=== PATIENT | female | born 1945 | race Caucasian/White ===

== ENCOUNTER 2019-12-31 14:08 | Emergency (ER) | payer MEDICARE, SELFPAY ==
[2019-12-31 14:10] VITALS: BP 133/66; PULSE 93; RESP 18; TEMP 36.8; O2SAT 97; BMI 25.6
--- NOTE | 2019-12-31 14:19 | DI.RAD.S_ITS ---
PROCEDURE: XR HUMERUS LT 2V INDICATIONS: Fall TECHNIQUE: 2 views of the humerus were acquired. COMPARISON: None. FINDINGS: Bones: There is a proximal left humeral metaphyseal fracture with mild associated impaction and slight medial displacement of the distal fracture fragment. The fracture probably involves the greater tuberosity of the humeral head. There may be intra-articular extension. There is no dislocation or suspicious osseous lesion. Soft tissues: No suspicious soft tissue calcifications. IMPRESSION: Proximal left humerus fracture with probable involvement of the greater tuberosity and possible intra-articular extension. Dictated by: Rios Chaparro M.D. on 12/31/2019 at 13:58 Approved by: Rios Chaparro M.D. on 12/31/2019 at 14:01
[2019-12-31 15:20] VITALS: BP 103/78; PULSE 90; RESP 18; O2SAT 96
--- NOTE | 2019-12-31 15:26 | ED_ITS ---
HPI - Extremity Injury (Upper) General Chief Complaint: Extremity Injury, Upper Stated Complaint: left shoulder injury last night Time Seen by Provider: 12/31/19 15:26 Source: patient Mode of arrival: Wheelchair Limitations: no limitations History of Present Illness HPI narrative: This is a 74-year-old female who comes to the emergency department with a left shoulder pain. Patient fell yesterday. She states she was at home she tripped while walking alongside her couch and fell. She states she did bump her head but denies any anticoagulation denies any headache. She denies any vision changes. No nausea or vomiting. She has had some mild neck discomfort but nothing that she describes as serious according to the patient. She has full range of motion. She denies any numbness or tingling in her extremities. She denies any chest pain or shortness of breath. Patient states that pain is in the left upper shoulder and mid shaft. She was seen by the [facility] and was given a shot of Toradol which she found helpful. She does take medication for dyslipidemia, diabetes type 2, GERD and hypertension. She states she has had a hysterectomy and knee replacement. She denies any allergies other than morphine and Vicodin. Morphine makes her hallucinate Vicodin makes her break out in a rash. She has had Percocet in the past without issue. Related Data Previous Rx's Medication Instructions Recorded oxycodone-acetaminophen [Percocet] 1 tab PO QID PRN #20 tab 12/31/19 Allergies Allergy/AdvReac Type Severity Reaction Status Date / Time acetaminophen [From Vicodin] Allergy Severe Hives Verified 12/31/19 14:18 hydrocodone [From Vicodin] Allergy Severe Hives Verified 12/31/19 14:18 morphine Allergy Severe Hallucinati Verified 12/31/19 14:18 ng Review of Systems Review of Systems ROS Unobtainable: All systems reviewed & are unremarkable except as noted in HPI and below Patient History Medical History (Updated 12/31/19 @ 15:43 by Sarah Beth Tristan DO) Dyslipidemia (Acute) GERD (gastroesophageal reflux disease) (Acute) Non-insulin dependent diabetes mellitus (Acute) Surgical History (Updated 12/31/19 @ 15:39 by Sarah Beth Tristan DO) H/O: hysterectomy (Acute) History of knee replacement (Acute) Social History (Updated 12/31/19 @ 15:39 by Sarah Beth Tristan DO) details: Lives alone independently on [facility] Smoking Status: Never smoker Smoking Status: Never smoker alcohol intake frequency: holidays/special occasions only Substance Use Type: does not use Exam Narrative Exam Narrative: GEN: Patient appears in mild distress. HEAD: No evidence of trauma, no raccoon/Do sign. NECK: Nontender, painless range of motion, trachea midline Negative Nexus criteria, there is no mid line tenderness, distracting injury, altered mental status, neuro deficit, recent EtOH. EYES: PERRLA, EOMI ENT: External inspection normal, trachea is midline, TM's are normal no hemotypanum, Nares are clear, no septal hematoma, no dental or oral injury, airway is normal and with normal occlusion, No bony tenderness RESP: Chest is nontender and has symmetric movement, no ecchymosis, breath sounds are normal no crackles, wheezes or rales CVS: Heart sounds are normal, no murmur noted, No JVD. ABG/GI: Nontender, soft, normal bowel sounds, no distention, no organomegaly, pelvic rock is negative NEURO: Oriented AOx3, neuro is grossly intact, sensation and motor is normal all 4 extremities moving, cranial nerves II through XII are intact, GCS is 15 PSYCH: Normal mood and affect SKIN: Intact, warm and dry, no crepitus and without decubitus BACK: No CVA tenderness, no vertebral tenderness, no step-off's, no crepitus EXT: Patient has tenderness of the left upper shoulder proximal humeral area. There is some swelling and mild ecchymosis, no obvious deformity but difficult to assess secondary to patient's body habitus, patient has full sensation in all 5 fingers and throughout the arm, she has full range of motion, she is nontender in the lower arm including elbow, forearm wrist and fingers, she has floor scrubber full equal bilaterally and 2+ radial pulse, hips are nontender, no pedal edema, normal color and temperature, normal range of motion of extremities with normal tendon exam, 2+ pulses in all four extremities Initial Vital Signs Initial Vital Signs: Vital Signs Temperature 98.3 F 12/31/19 14:10 Pulse Rate 93 H 12/31/19 14:10 Respiratory Rate 18 12/31/19 14:10 Blood Pressure 133/66 12/31/19 14:10 Pulse Oximetry 97 12/31/19 14:10 Course Orders Ordered: ED Orders 12/31/19 14:19 XR humerus LT 2V Stat Discontinued Medications Oxycodone/Acetaminophen (Percocet 5/325) 2 tab PO NOW ONE Stop: 12/31/19 15:34 Last Admin: 12/31/19 15:59 Dose: 2 tab Documented by: ADDISON Vital Signs Vital signs: Vital Signs - 8 hr 12/31/19 14:10 12/31/19 15:20 12/31/19 16:13 Temperature 98.3 F Pulse Rate 93 H 90 89 Pulse Rate [Left Radial] 90 Respiratory Rate 18 18 14 Blood Pressure 133/66 Blood Pressure [Left Arm] 103/78 157/66 H Pulse Oximetry 97 96 95 MDM - Extremity Injury (Upper) Imaging Data Humeral x-ray: Radiologist's Impression: [address] [address] XRay Report Signed Patient: Lucie Barba LMR#: [id number] : 1945cct:[id number] Age/Sex: 74 / FDate of Service: 12/31/19 Loc: ED Accession Number: [id number] Procedure: XR humerus LT 2V Ordering Provider: Sarah Beth Tristan D.O. PROCEDURE: XR HUMERUS LT 2V INDICATIONS: Fall TECHNIQUE: 2 views of the humerus were acquired. COMPARISON: None. FINDINGS: Bones: There is a proximal left humeral metaphyseal fracture with mild associated impaction and slight medial displacement of the distal fracture fragment. The fracture probably involves the greater tuberosity of the humeral head. There may be intra-articular extension. There is no dislocation or suspicious osseous lesion. Soft tissues: No suspicious soft tissue calcifications. IMPRESSION: Proximal left humerus fracture with probable involvement of the greater tuberosity and possible intra-articular extension. Dictated by: Rios Chaparro M.D. on 12/31/2019 at 13:58 Approved by: Rios Chaparro M.D. on 12/31/2019 at 14:01 [facility] Narrative Medical decision making narrative: Patient arrives already in a sling which she received from the clinic on or cast. She still has some pain gave her dose of Percocet here in the department. Discussed findings with Dr. Giron, he has reviewed images, who recommends sling and follow-up outpatient. Non operative treatment at this time. Discussed with patient findings, plan with Orthopedic surgery and return precautions. Discharge Plan Departure Patient Disposition: Home Clinical Impression: Fracture of proximal end of humerus Qualifiers: Encounter type: initial encounter Fracture type: closed Fracture alignment: displaced Laterality: left Discharge Date/Time: 12/31/19 16:16 Instructions: DI for Humeral Fracture Activity Restrictions/Additional Instructions: Follow-up with Orthopedic surgery in the next 5-7 days, call for an appointment either this afternoon or Friday morning. Take pain medication as prescribed, this medication can make you sleepy do not drive, perform hazardous activities or make any major decisions while taking it. This medication can and will cause constipation take a stool softener such as Colace or MiraLax once or twice daily until stools are soft while taking narcotics. Splint Care: Keep sling clean and dry. Elevated affected body part to decrease swelling. OK to use ice pack on the affected body part. Use for 15-20 minutes each time, for 5-6x per day. If you develop worsening pain, numbness, tingling, discoloration of the affected body part, loosen the sling by loosening the ESTELLE wrap, and either see your doctor for an urgent re-assessment, or return to the Emergency Department. Return to the Emergency Department for any new or worsening symptoms. Prescriptions: New oxycodone-acetaminophen [Percocet] 5-325 mg tablet 1 tab PO QID PRN (Reason: pain) Qty: 20 RF: 0 Referrals: Erik Giron MD [Physician] - Arslan Felton MD [Primary Care Provider] -
[2019-12-31] MEDS: OXYCODONE/ACETAMINOPHEN 5/325 TABLET 2 TAB PO (15:59)
[2019-12-31 16:13] VITALS: BP 157/66; PULSE 89; RESP 14; O2SAT 95
== END 2019-12-31 16:16 | disposition home or self-care (01) ==
PROVIDERS: Emergency Provider Emergency Medicine; PCP Family Medicine
DX: S42.202A Unspecified fracture of upper end of left humerus, initial encounter for closed fracture (principal); W01.0XXA Fall on same level from slipping, tripping and stumbling without subsequent striking against object, initial encounter
CPT/HCPCS: 73060; 99283

== ENCOUNTER → 2020-01-11 08:57 | Outpatient (CLI) | payer MEDICARE, SELFPAY ==
--- NOTE | 2020-01-11 | DI.CT.S_ITS ---
PROCEDURE: CT UE LT WO CON INDICATIONS: Other nondisplaced fracture of upper end of left humerus TECHNIQUE: Noncontrast 1-1.5 mm thick sections acquired from the acromioclavicular joint to the inferior scapula, with coronal and sagittal reformatting. COMPARISON: [facility], CR, XR HUMERUS LT 2V, 12/31/2019, 14:13. [facility] [place], CR, XR SHOULDER 2+ VIEWS LEFT, 01/07/2020, 14:58. FINDINGS: Image quality: Excellent. Bones: There is a comminuted humeral head and neck fracture with impaction. There is involvement of the greater tuberosity with mild displacement. Suspect a small avulsion fracture of the posterior superior glenoid. Soft tissues: Small glenohumeral joint effusion. IMPRESSION: 1. A comminuted humeral head and neck fracture with involvement of the greater tuberosity. 2. Suspect a small avulsion fracture of the posterior superior glenoid. 3. Small glenohumeral joint effusion. 1. Dictated by: Brayan Alanis M.D. on 01/11/2020 at 8:48 Approved by: Brayan Alanis M.D. on 01/11/2020 at 9:06
== END ==
PROVIDERS: PCP Family Medicine; Referring Provider Orthopaedic Surgery; Visit Provider Orthopaedic Surgery
DX: S42.292A Other displaced fracture of upper end of left humerus, initial encounter for closed fracture (principal); S42.252A Displaced fracture of greater tuberosity of left humerus, initial encounter for closed fracture; M25.412 Effusion, left shoulder; X58.XXXA Exposure to other specified factors, initial encounter
CPT/HCPCS: 73200

== ENCOUNTER 2024-10-13 19:34 | Observation (INO) | payer MEDICARE, SELFPAY ==
[2024-10-13 20:02] VITALS: BP 133/62; PULSE 95; RESP 14; TEMP 36.4; O2SAT 94; BMI 56.2
--- NOTE | 2024-10-13 20:42 | DI.CT.S_ITS ---
PROCEDURE: CT HEAD/BRAIN WO CON INDICATIONS: hullucinations visual TECHNIQUE: Noncontrast 4.5 mm thick angled axial sections acquired from the foramen magnum to the vertex, with coronal and sagittal reformats. For radiation dose reduction, the following was used: automated exposure control, adjustment of mA and/or kV according to patient size. COMPARISON: None. FINDINGS: Image quality: Diagnostic. CSF spaces: Basal cisterns are patent. No extra-axial fluid collections. The ventricles are symmetric in size and shape. Brain: No intracranial bleeds or masses. There is cerebral volume loss for age, with resultant ventricular and sulcal prominence. There are periventricular and deep white matter chronic small vessel ischemic changes. There is intracranial internal carotid artery atherosclerosis. Skull and face: Calvarium and visualized facial bones appear intact, without suspicious lesions. Sinuses: Visualized sinuses and mastoids are clear. IMPRESSION: No acute intracranial pathology. Dictated by: Dane Mock M.D. on 10/13/2024 at 21:10 Approved by: Dane Mock M.D. on 10/13/2024 at 21:12
--- NOTE | 2024-10-13 21:27 | DI.RAD.S_ITS ---
PROCEDURE: XR WRIST LT MIN 3V INDICATIONS: Fall with pain TECHNIQUE: 3 views of the wrist were acquired. COMPARISON: None. FINDINGS: Bones: Comminuted and mildly displaced fracture of the distal radius. Displaced fracture of the ulnar styloid tip.. No suspicious bony lesions. Soft tissues: No suspicious soft tissue calcifications. IMPRESSION: Distal radial and ulnar styloid fractures. Dictated by: Dane Mock M.D. on 10/13/2024 at 22:31 Approved by: Dane Mock M.D. on 10/13/2024 at 22:32
[2024-10-13 21:44] LABS: Add Manual Diff / Slide Review NO; Basophils Absolute Auto 100 /uL (0-100); Basophils Percent Auto 1.4 % (0-2); Eosinophils Absolute Auto 200 /uL (0-450); Hematocrit 40.7 % (36-46); Hemoglobin 13.7 g/dL (12.0-16.0); Lymphocytes Absolute Auto 1900 /uL (1100-4500); Lymphocytes Percent Auto 24.5 % (25-40); Mean Corpuscular HGB Conc 33.6 % (30-36); Mean Corpuscular Hemoglobin 29.9 PG (26-34); Mean Corpuscular Volume 88.9 fL (80-100); Monocytes Absolute Auto 600 /uL (0-900); Monocytes Percent Auto 8.1 % (3-14); Neutrophils Absolute Auto 4900 /uL (1500-7000); Platelet Count 176 X10^3/uL (150-400); Red Blood Cell Count 4.57 X10^6/uL (4.0-5.2); Red Cell Distribution Width 12.8 % (11.6-14.8); White Blood Cell Count 7.7 X10^3/uL (4.5-11.0)
[2024-10-13 21:53] LABS: Alanine Aminotransferase 33 IU/L (<35); Albumin 4.6 g/dL (3.5-5.0); Albumin Globulin Ratio 1.4 (1.0-2.8); Alkaline Phosphatase 111 U/L (38-126); Aspartate Aminotransferase 35 IU/L (14-36); BUN Creatinine Ratio 26.9 (6-22); Bilirubin Total 0.5 mg/dL (0.2-1.3); Blood Urea Nitrogen 21 mg/dL (7-17); Calcium 9.5 mg/dL (8.4-10.2); Carbon Dioxide 25 mmol/L (22-32); Chloride 101 mmol/L (98-107); Estimated Glomerular Filt Rate > 60 mL/min (>60); Globulin 3.3 g/dL (1.7-4.1); Glucose 221 mg/dL (80-110); Potassium 3.5 mmol/L (3.4-5.1); Sodium 138 mmol/L (137-145); Total Protein 7.9 g/dL (6.3-8.2)
--- NOTE | 2024-10-13 22:07 | PC.NURSE ---
Addendum entered by Colin Price R.N. 10/13/24 23:04: Son is Levi Anderson (#[phone]) who lives in [place]. Original Note: Pt lives in basement of friend, Altagracia Hernandez (#[phone]) on [facility]. She was encouraged to come in by APS Angie Forrest (#[phone]) due to ongoing hallucinations and concerns for safety at the home in regard to leaving the stove top on and burned food. Pt reports a fall at the end of July coming out of the bathtub and on September 19 when she hurt her wrist. Both times she was not seen. She has a splint on her left wrist and c/o 2/10 pain with movement. She began having visual hallucinations in August and some agitation during these hallucinations. She is currently A&Ox4 and not experiencing any hallucinations. Pt states she sees and alive people that don't have their voice. She is able to understand them thought and reads their lips. Pt reports seeing her ex- and girls having sex in front of her. She also sees people crawling into her bed. Before being triaged she saw people in the waiting room that weren't there according to her friend Altagracia. Friend Altagracia says she will set the table for multiple people and cook for them who are not there. Friend Altagracia states APS initially became involved due to concerns for bank fraud. She has recently started Quetiapine 50mg once daily which has helped me sleep. Pt has referrals to neuro-psych and for an MRI next week. She has seen Noemí and Be Cabello at [facility] (#[phone]) on [place]. Current home meds are Celecoxib 100mg BID, cyclobenzaprine hcl 10mg PRN, levothyroxine 50mcg once daily, quetiapine fumarate 50mg once daily, and atorvastatin calcium 20mg once daily.
[2024-10-13 22:30] LABS: TSH w/ Reflex to FT4 0.91 uIU/mL (0.47-4.68)
[2024-10-13 22:43] LABS: Ethanol (ETOH) < 10 mg/dL; HEMOLYSIS 26 (0-50)
--- NOTE | 2024-10-13 22:45 | EKG_ITS ---
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
[2024-10-13 22:49] VITALS: PULSE 82; O2SAT 97
[2024-10-13 22:50] VITALS: BP 121/71; PULSE 82; O2SAT 97
[2024-10-13 23:00] VITALS: PULSE 81; O2SAT 95
[2024-10-13 23:01] VITALS: BP 110/59; PULSE 81; O2SAT 95
--- NOTE | 2024-10-13 23:08 | ED.PSYCH ---
HPI - Psych <Tiffanie Meehan MD - Last Filed: 10/21/24 07:14> General Chief Complaint: Psychiatric Symptoms Stated Complaint: mental health eval Time Seen by Provider: 10/13/24 19:44 Source: patient and family Mode of arrival: Ambulatory History of Present Illness HPI Narrative: 79-year-old woman who lives on [facility] the history of diabetes, reflux and hyperlipidemiabrought in voluntarily with a friend with complaints of visual and auditory hallucinations. She had a fall on August 15 where she hit her head and was not evaluated after that. On September 22, she had a fall as she was running from people that were chasing her,. She landed on her left arm during the fall and has been having left arm pain. She reports that the people that continue to follow her are getting increasingly angry, there yelling at her, otherwise harassing her and telling her she is a bad person. she notes that she has been seeing her who apparently has been for almost 5 years, coming back to talk to her daily for the last 2 months. She can not express what they talk about but she is quite upset with him and it sounds like he is upset with her. She states that she knows that he is but she does not know what to do when she continues to see him daily.Patient was seen by Dr. Felton on [facility] and apparently is scheduled for brain on [facility]. She denies suicidal or homicidal ideation. She states she is drinking and eating appropriately. no reports of recreational drug use including alcohol, narcotics or marijuana. there was no report of starting any new medications. Adult protective Services has also asked for further medical and psychiatric evaluation. Related Data Home Medications Medication Instructions Recorded Confirmed atorvastatin 20 mg tablet 20 mg PO DAILY 10/15/24 10/15/24 celecoxib 100 mg capsule 100 mg PO DAILY 10/15/24 10/15/24 cyclobenzaprine 10 mg tablet 10 mg PO 3XD 10/15/24 10/15/24 levothyroxine 50 mcg tablet 50 mcg PO DAILY 10/15/24 10/15/24 quetiapine 50 mg tablet 50 mg PO DAILY 10/15/24 10/15/24 Allergies Allergy/AdvReac Type Severity Reaction Status Date / Time hydrocodone [From Vicodin] Allergy Severe Hives Verified 10/13/24 22:22 morphine Allergy Severe Hallucinati Verified 10/13/24 22:22 ng Review of Systems <Tiffanie Meehan MD - Last Filed: 10/21/24 07:14> Review of Systems Narrative: Pertinent positive and negative findings as per HPI Patient History <Tiffanie Meehan MD - Last Filed: 10/21/24 07:14> Medical History GERD (gastroesophageal reflux disease) Non-insulin dependent diabetes mellitus Dyslipidemia Surgical History History of knee replacement H/O: hysterectomy Social History details: Lives alone independently on [facility] household members: none Smoking Status: Never smoker alcohol intake: current Smoking Status: Never smoker alcohol intake frequency: holidays/special occasions only Exam <Tiffanie Meehan MD - Last Filed: 10/21/24 07:14> Initial Vital Signs Initial Vital Signs: Vital Signs Temperature 97.5 F L 10/13/24 20:02 Pulse Rate 95 H 10/13/24 20:02 Respiratory Rate 14 10/13/24 20:02 Blood Pressure 133/62 10/13/24 20:02 Pulse Oximetry 94 10/13/24 20:02 Oxygen Delivery Method Room Air 10/13/24 20:02 General: Healthy appearing, tearful but cooperative. HEENT: Moist mucous membranes, normal sclera with reactive pupils, Respiratory: Lungs are clear to auscultation, no wheezing no rales no rhonchi. Full and symmetrical air movement Cardiac: Regular rate and rhythm no murmurs no bruits Abdomen: Soft, nontender, Skin: Warm and dry, no rashes Neurologic: Grossly neurologically intact with no obvious asymmetries or abnormalities Extremities: Left upper extremity now in a sugar-tong splint, tender of the wrist, neurovascularly intact Psych: Cooperative, tearful, quite tangential as best I can tell she is clearly seeing and talking to people that she understands are already but are still quite present. Seems like this has been going on for at least 2 months if not longer. <Arslan Clifford MD - Last Filed: 10/18/24 07:27> Initial Vital Signs Initial Vital Signs: Vital Signs Temperature 97.5 F L 10/13/24 20:02 Pulse Rate 95 H 10/13/24 20:02 Respiratory Rate 14 10/13/24 20:02 Blood Pressure 133/62 10/13/24 20:02 Pulse Oximetry 94 10/13/24 20:02 Oxygen Delivery Method Room Air 10/13/24 20:02 <Mitul Prieto MD - Last Filed: 10/16/24 04:54> Initial Vital Signs Initial Vital Signs: Vital Signs Temperature 97.5 F L 10/13/24 20:02 Pulse Rate 95 H 10/13/24 20:02 Respiratory Rate 14 10/13/24 20:02 Blood Pressure 133/62 10/13/24 20:02 Pulse Oximetry 94 10/13/24 20:02 Oxygen Delivery Method Room Air 10/13/24 20:02 Course <Tiffanie Meehan MD - Last Filed: 10/21/24 07:14> Orders Ordered: Acetaminophen (Acetaminophen 325 Mg Tablet) 650 mg PO Q6H PRN PRN Reason: Pain, Mild (1-3) Atorvastatin Calcium (Atorvastatin 20 Mg Tablet) 20 mg PO DAILY [facility] Last Admin: 10/20/24 08:56 Dose: 20 mg Documented By: Admin: 10/19/24 08:16 Dose: 20 mg Documented By: Admin: 10/18/24 08:05 Dose: 20 mg Documented By: Admin: 10/17/24 08:49 Dose: 20 mg Documented By: Admin: 10/16/24 09:14 Dose: 20 mg Documented By: BT Celecoxib (Celecoxib 100 Mg Capsule) 100 mg PO DAILY [facility] Last Admin: 10/20/24 08:56 Dose: 100 mg Documented By: Admin: 10/19/24 08:16 Dose: 100 mg Documented By: Admin: 10/18/24 08:05 Dose: 100 mg Documented By: Admin: 10/17/24 08:49 Dose: 100 mg Documented By: Admin: 10/16/24 09:14 Dose: 100 mg Documented By: BT Cyclobenzaprine HCl (Cyclobenzaprine 10 Mg Tablet) 10 mg PO TID PRN PRN Reason: muscle spasms Last Admin: 10/19/24 20:10 Dose: 10 mg Documented By: Admin: 10/19/24 13:16 Dose: 10 mg Documented By: Admin: 10/19/24 08:16 Dose: 10 mg Documented By: Admin: 10/18/24 08:05 Dose: 10 mg Documented By: Admin: 10/17/24 22:37 Dose: 10 mg Documented By: Admin: 10/17/24 14:39 Dose: 10 mg Documented By: Admin: 10/17/24 08:49 Dose: 10 mg Documented By: SB Haloperidol (Haloperidol 5 Mg/Ml Vial) 5 mg IM Q2HR PRN PRN Reason: Agitation Last Admin: 10/20/24 19:59 Dose: 5 mg Documented By: Admin: 10/20/24 17:36 Dose: 5 mg Documented By: Admin: 10/19/24 19:36 Dose: 5 mg Documented By: Admin: 10/19/24 12:19 Dose: 5 mg Documented By: CAROLYNE Heparin Sodium (Porcine) (Heparin 5,000 Unit/Ml Vial) 5,000 unit SUBCUT BID [facility] Last Admin: 10/20/24 20:00 Dose: 5,000 unit Documented By: Admin: 10/20/24 08:56 Dose: 5,000 unit Documented By: Admin: 10/19/24 20:11 Dose: 5,000 unit Documented By: Admin: 10/19/24 08:16 Dose: 5,000 unit Documented By: Admin: 10/18/24 20:01 Dose: 5,000 unit Documented By: Admin: 10/18/24 08:06 Dose: 5,000 unit Documented By: Admin: 10/17/24 20:05 Dose: Not Given Documented By: Admin: 10/17/24 08:49 Dose: 5,000 unit Documented By: Admin: 10/16/24 19:35 Dose: 5,000 unit Documented By: Admin: 10/16/24 09:14 Dose: 5,000 unit Documented By: Admin: 10/15/24 21:45 Dose: 5,000 unit Documented By: (2) Hydroxyzine HCl (Hydroxyzine 50 Mg/Ml Inj) 25 mg IM Q4HR PRN PRN Reason: Nausea Last Admin: 10/19/24 13:39 Dose: 25 mg Documented By: CAROLYNE Levothyroxine Sodium (Levothyroxine 50 Mcg Tablet) 50 mcg PO DAILY@0600 [facility] Last Admin: 10/21/24 05:51 Dose: 50 mcg Documented By: Admin: 10/20/24 05:53 Dose: 50 mcg Documented By: Admin: 10/19/24 07:36 Dose: 50 mcg Documented By: Admin: 10/18/24 08:05 Dose: 50 mcg Documented By: Admin: 10/17/24 05:09 Dose: Not Given Documented By: Admin: 10/16/24 05:32 Dose: Not Given Documented By: MS(2) Admin: 10/15/24 08:38 Dose: 50 mcg Documented By: DARI Melatonin (Melatonin 3 Mg Tablet) 3 mg PO BEDTIME [facility] Last Admin: 10/20/24 20:00 Dose: 3 mg Documented By: Admin: 10/19/24 20:10 Dose: 3 mg Documented By: Admin: 10/18/24 20:01 Dose: 3 mg Documented By: Admin: 10/17/24 20:04 Dose: 3 mg Documented By: Admin: 10/16/24 19:34 Dose: 3 mg Documented By: Admin: 10/15/24 22:33 Dose: 3 mg Documented By: MS(2) Admin: 10/14/24 22:24 Dose: 3 mg Documented By: JEFFREY Naloxone HCl (Naloxone 0.4 Mg/Ml Vial) 0.2 mg IV Q2MIN PRN PRN Reason: Opiate Reversal Stored In Pharmacy 1 each PO PRN PRN PRN Reason: PROTOCOL Olanzapine (Olanzapine 2.5 Mg Tablet) 10 mg PO BID [facility] Last Admin: 10/20/24 20:03 Dose: 10 mg Documented By: Admin: 10/20/24 08:56 Dose: 10 mg Documented By: Admin: 10/19/24 20:10 Dose: 10 mg Documented By: CLIFTON Ondansetron HCl (Ondansetron 4 Mg/2 Ml Inj) 4 mg IV Q8HR PRN PRN Reason: Nausea And Vomiting Quetiapine Fumarate (Quetiapine 25 Mg Tablet) 100 mg PO BEDTIME [facility] Last Admin: 10/20/24 20:00 Dose: 100 mg Documented By: Admin: 10/19/24 20:11 Dose: 100 mg Documented By: CLIFTON Discontinued Medications Alprazolam (Alprazolam 0.25 Mg Tablet) 0.25 mg PO NOW ONE Stop: 10/18/24 23:39 Last Admin: 10/19/24 01:27 Dose: Not Given Documented By: MS Celecoxib (Celecoxib 100 Mg Capsule) 100 mg PO BID [facility] Last Admin: 10/15/24 22:34 Dose: 100 mg Documented By: MS(2) Admin: 10/15/24 08:39 Dose: 100 mg Documented By: Admin: 10/14/24 22:24 Dose: 100 mg Documented By: JEFFREY Enoxaparin Sodium (Enoxaparin 40 Mg/0.4 Ml Syringe) 40 mg SUBCUT DAILY [facility] Last Admin: 10/15/24 08:39 Dose: 40 mg Documented By: SPF Haloperidol (Haloperidol 5 Mg/Ml Vial) 5 mg IM NOW ONE Stop: 10/18/24 22:09 Last Admin: 10/18/24 23:06 Dose: 5 mg Documented By: MS Haloperidol (Haloperidol 5 Mg/Ml Vial) 5 mg IM NOW ONE Stop: 10/19/24 02:56 Last Admin: 10/19/24 05:53 Dose: 5 mg Documented By: MS Haloperidol (Haloperidol 5 Mg/Ml Vial) 5 mg IM NOW ONE Stop: 10/19/24 14:04 Last Admin: 10/19/24 14:09 Dose: 5 mg Documented By: CAROLYNE Levothyroxine Sodium (Levothyroxine 50 Mcg Tablet) 50 mcg PO DAILY [facility] Lorazepam (Lorazepam 2 Mg/Ml Inj) 1 mg IV NOW ONE Stop: 10/14/24 07:52 Last Admin: 10/14/24 07:58 Dose: 1 mg Documented By: MLM Lorazepam (Lorazepam 0.5 Mg Tablet) 0.5 mg PO NOW ONE Stop: 10/15/24 18:37 Last Admin: 10/15/24 18:41 Dose: 0.5 mg Documented By: RB Olanzapine (Olanzapine 2.5 Mg Tablet) 5 mg PO BID [facility] Last Admin: 10/17/24 08:49 Dose: 5 mg Documented By: Admin: 10/16/24 19:34 Dose: 5 mg Documented By: Admin: 10/16/24 09:14 Dose: 5 mg Documented By: Admin: 10/15/24 22:33 Dose: 5 mg Documented By: MS(2) Admin: 10/15/24 08:38 Dose: 5 mg Documented By: Admin: 10/14/24 22:24 Dose: 5 mg Documented By: JEFFREY Olanzapine (Olanzapine 10 Mg Vial) 10 mg IM NOW ONE Stop: 10/16/24 22:51 Last Admin: 10/17/24 00:02 Dose: 10 mg Documented By: MARIELLE Olanzapine (Olanzapine 2.5 Mg Tablet) 5 mg PO DAILY [facility] Last Admin: 10/19/24 08:16 Dose: 5 mg Documented By: Admin: 10/18/24 08:05 Dose: 5 mg Documented By: DIXON Olanzapine (Olanzapine 2.5 Mg Tablet) 10 mg PO BEDTIME [facility] Last Admin: 10/18/24 20:01 Dose: 10 mg Documented By: Admin: 10/17/24 20:05 Dose: 10 mg Documented By: Olanzapine (Olanzapine 2.5 Mg Tablet) 5 mg PO NOW ONE Stop: 10/17/24 17:06 Last Admin: 10/17/24 17:44 Dose: 5 mg Documented By: DIXON Olanzapine (Olanzapine 2.5 Mg Tablet) 5 mg PO NOW ONE Stop: 10/19/24 13:35 Last Admin: 10/19/24 13:38 Dose: 5 mg Documented By: CAROLYNE Quetiapine Fumarate (Quetiapine 25 Mg Tablet) 25 mg PO NOW ONE Stop: 10/14/24 03:33 Last Admin: 10/14/24 03:45 Dose: 25 mg Documented By: LINDSAY Quetiapine Fumarate (Quetiapine 25 Mg Tablet) 50 mg PO NOW ONE Stop: 10/14/24 04:24 Last Admin: 10/14/24 04:33 Dose: 50 mg Documented By: Quetiapine Fumarate (Quetiapine 25 Mg Tablet) 50 mg PO BEDTIME [facility] Last Admin: 10/15/24 22:33 Dose: 50 mg Documented By: (2) Admin: 10/14/24 22:24 Dose: 50 mg Documented By: JEFFREY Quetiapine Fumarate (Quetiapine 25 Mg Tablet) 50 mg PO DAILY [facility] Quetiapine Fumarate (Quetiapine 25 Mg Tablet) 50 mg PO BEDTIME [facility] Last Admin: 10/18/24 20:01 Dose: 50 mg Documented By: Admin: 10/17/24 20:04 Dose: 50 mg Documented By: Admin: 10/16/24 20:03 Dose: 50 mg Documented By: VISH Quetiapine Fumarate (Quetiapine 25 Mg Tablet) 100 mg PO NOW ONE Stop: 10/16/24 21:11 Last Admin: 10/16/24 21:34 Dose: 100 mg Documented By: CM Vital Signs Vital signs: Vital Signs - 8 hr 10/15/24 18:14 10/15/24 18:14 Temperature 97.5 F L Pulse Rate 89 Respiratory Rate 20 Blood Pressure 133/64 Pulse Oximetry 94 <Arslan Clifford MD - Last Filed: 10/18/24 07:27> Orders Ordered: Acetaminophen (Acetaminophen 325 Mg Tablet) 650 mg PO Q6H PRN PRN Reason: Pain, Mild (1-3) Atorvastatin Calcium (Atorvastatin 20 Mg Tablet) 20 mg PO DAILY [facility] Last Admin: 10/20/24 08:56 Dose: 20 mg Documented By: Admin: 10/19/24 08:16 Dose: 20 mg Documented By: Admin: 10/18/24 08:05 Dose: 20 mg Documented By: Admin: 10/17/24 08:49 Dose: 20 mg Documented By: Admin: 10/16/24 09:14 Dose: 20 mg Documented By: BT Celecoxib (Celecoxib 100 Mg Capsule) 100 mg PO DAILY [facility] Last Admin: 10/20/24 08:56 Dose: 100 mg Documented By: Admin: 10/19/24 08:16 Dose: 100 mg Documented By: Admin: 10/18/24 08:05 Dose: 100 mg Documented By: Admin: 10/17/24 08:49 Dose: 100 mg Documented By: Admin: 10/16/24 09:14 Dose: 100 mg Documented By: BT Cyclobenzaprine HCl (Cyclobenzaprine 10 Mg Tablet) 10 mg PO TID PRN PRN Reason: muscle spasms Last Admin: 10/19/24 20:10 Dose: 10 mg Documented By: Admin: 10/19/24 13:16 Dose: 10 mg Documented By: Admin: 10/19/24 08:16 Dose: 10 mg Documented By: Admin: 10/18/24 08:05 Dose: 10 mg Documented By: Admin: 10/17/24 22:37 Dose: 10 mg Documented By: Admin: 10/17/24 14:39 Dose: 10 mg Documented By: Admin: 10/17/24 08:49 Dose: 10 mg Documented By: SB Haloperidol (Haloperidol 5 Mg/Ml Vial) 5 mg IM Q2HR PRN PRN Reason: Agitation Last Admin: 10/20/24 19:59 Dose: 5 mg Documented By: Admin: 10/20/24 17:36 Dose: 5 mg Documented By: Admin: 10/19/24 19:36 Dose: 5 mg Documented By: Admin: 10/19/24 12:19 Dose: 5 mg Documented By: CAROLYNE Heparin Sodium (Porcine) (Heparin 5,000 Unit/Ml Vial) 5,000 unit SUBCUT BID [facility] Last Admin: 10/20/24 20:00 Dose: 5,000 unit Documented By: Admin: 10/20/24 08:56 Dose: 5,000 unit Documented By: Admin: 10/19/24 20:11 Dose: 5,000 unit Documented By: Admin: 10/19/24 08:16 Dose: 5,000 unit Documented By: Admin: 10/18/24 20:01 Dose: 5,000 unit Documented By: Admin: 10/18/24 08:06 Dose: 5,000 unit Documented By: Admin: 10/17/24 20:05 Dose: Not Given Documented By: Admin: 10/17/24 08:49 Dose: 5,000 unit Documented By: Admin: 10/16/24 19:35 Dose: 5,000 unit Documented By: Admin: 10/16/24 09:14 Dose: 5,000 unit Documented By: Admin: 10/15/24 21:45 Dose: 5,000 unit Documented By: MS(2) Hydroxyzine HCl (Hydroxyzine 50 Mg/Ml Inj) 25 mg IM Q4HR PRN PRN Reason: Nausea Last Admin: 10/19/24 13:39 Dose: 25 mg Documented By: CAROLYNE Levothyroxine Sodium (Levothyroxine 50 Mcg Tablet) 50 mcg PO DAILY@0600 [facility] Last Admin: 10/21/24 05:51 Dose: 50 mcg Documented By: Admin: 10/20/24 05:53 Dose: 50 mcg Documented By: Admin: 10/19/24 07:36 Dose: 50 mcg Documented By: Admin: 10/18/24 08:05 Dose: 50 mcg Documented By: Admin: 10/17/24 05:09 Dose: Not Given Documented By: Admin: 10/16/24 05:32 Dose: Not Given Documented By: MS(2) Admin: 10/15/24 08:38 Dose: 50 mcg Documented By: SPF Melatonin (Melatonin 3 Mg Tablet) 3 mg PO BEDTIME [facility] Last Admin: 10/20/24 20:00 Dose: 3 mg Documented By: Admin: 10/19/24 20:10 Dose: 3 mg Documented By: Admin: 10/18/24 20:01 Dose: 3 mg Documented By: Admin: 10/17/24 20:04 Dose: 3 mg Documented By: Admin: 10/16/24 19:34 Dose: 3 mg Documented By: Admin: 10/15/24 22:33 Dose: 3 mg Documented By: MS(2) Admin: 10/14/24 22:24 Dose: 3 mg Documented By: JEFFREY Naloxone HCl (Naloxone 0.4 Mg/Ml Vial) 0.2 mg IV Q2MIN PRN PRN Reason: Opiate Reversal Stored In Pharmacy 1 each PO PRN PRN PRN Reason: PROTOCOL Olanzapine (Olanzapine 2.5 Mg Tablet) 10 mg PO BID [facility] Last Admin: 10/20/24 20:03 Dose: 10 mg Documented By: Admin: 10/20/24 08:56 Dose: 10 mg Documented By: Admin: 10/19/24 20:10 Dose: 10 mg Documented By: CLIFTON Ondansetron HCl (Ondansetron 4 Mg/2 Ml Inj) 4 mg IV Q8HR PRN PRN Reason: Nausea And Vomiting Quetiapine Fumarate (Quetiapine 25 Mg Tablet) 100 mg PO BEDTIME [facility] Last Admin: 10/20/24 20:00 Dose: 100 mg Documented By: Admin: 10/19/24 20:11 Dose: 100 mg Documented By: CLIFTON Discontinued Medications Alprazolam (Alprazolam 0.25 Mg Tablet) 0.25 mg PO NOW ONE Stop: 10/18/24 23:39 Last Admin: 10/19/24 01:27 Dose: Not Given Documented By: Celecoxib (Celecoxib 100 Mg Capsule) 100 mg PO BID [facility] Last Admin: 10/15/24 22:34 Dose: 100 mg Documented By: MS(2) Admin: 10/15/24 08:39 Dose: 100 mg Documented By: Admin: 10/14/24 22:24 Dose: 100 mg Documented By: JEFFREY Enoxaparin Sodium (Enoxaparin 40 Mg/0.4 Ml Syringe) 40 mg SUBCUT DAILY [facility] Last Admin: 10/15/24 08:39 Dose: 40 mg Documented By: SPF Haloperidol (Haloperidol 5 Mg/Ml Vial) 5 mg IM NOW ONE Stop: 10/18/24 22:09 Last Admin: 10/18/24 23:06 Dose: 5 mg Documented By: MS Haloperidol (Haloperidol 5 Mg/Ml Vial) 5 mg IM NOW ONE Stop: 10/19/24 02:56 Last Admin: 10/19/24 05:53 Dose: 5 mg Documented By: MS Haloperidol (Haloperidol 5 Mg/Ml Vial) 5 mg IM NOW ONE Stop: 10/19/24 14:04 Last Admin: 10/19/24 14:09 Dose: 5 mg Documented By: CAROLYNE Levothyroxine Sodium (Levothyroxine 50 Mcg Tablet) 50 mcg PO DAILY [facility] Lorazepam (Lorazepam 2 Mg/Ml Inj) 1 mg IV NOW ONE Stop: 10/14/24 07:52 Last Admin: 10/14/24 07:58 Dose: 1 mg Documented By: MARTA Lorazepam (Lorazepam 0.5 Mg Tablet) 0.5 mg PO NOW ONE Stop: 10/15/24 18:37 Last Admin: 10/15/24 18:41 Dose: 0.5 mg Documented By: RB Olanzapine (Olanzapine 2.5 Mg Tablet) 5 mg PO BID [facility] Last Admin: 10/17/24 08:49 Dose: 5 mg Documented By: Admin: 10/16/24 19:34 Dose: 5 mg Documented By: Admin: 10/16/24 09:14 Dose: 5 mg Documented By: Admin: 10/15/24 22:33 Dose: 5 mg Documented By: MS(2) Admin: 10/15/24 08:38 Dose: 5 mg Documented By: Admin: 10/14/24 22:24 Dose: 5 mg Documented By: JEFFREY Olanzapine (Olanzapine 10 Mg Vial) 10 mg IM NOW ONE Stop: 10/16/24 22:51 Last Admin: 10/17/24 00:02 Dose: 10 mg Documented By: MARIELLE Olanzapine (Olanzapine 2.5 Mg Tablet) 5 mg PO DAILY [facility] Last Admin: 10/19/24 08:16 Dose: 5 mg Documented By: Admin: 10/18/24 08:05 Dose: 5 mg Documented By: DIXON Olanzapine (Olanzapine 2.5 Mg Tablet) 10 mg PO BEDTIME [facility] Last Admin: 10/18/24 20:01 Dose: 10 mg Documented By: Admin: 10/17/24 20:05 Dose: 10 mg Documented By: Olanzapine (Olanzapine 2.5 Mg Tablet) 5 mg PO NOW ONE Stop: 10/17/24 17:06 Last Admin: 10/17/24 17:44 Dose: 5 mg Documented By: DIXON Olanzapine (Olanzapine 2.5 Mg Tablet) 5 mg PO NOW ONE Stop: 10/19/24 13:35 Last Admin: 10/19/24 13:38 Dose: 5 mg Documented By: CAROLYNE Quetiapine Fumarate (Quetiapine 25 Mg Tablet) 25 mg PO NOW ONE Stop: 10/14/24 03:33 Last Admin: 10/14/24 03:45 Dose: 25 mg Documented By: LINDSAY Quetiapine Fumarate (Quetiapine 25 Mg Tablet) 50 mg PO NOW ONE Stop: 10/14/24 04:24 Last Admin: 10/14/24 04:33 Dose: 50 mg Documented By: Quetiapine Fumarate (Quetiapine 25 Mg Tablet) 50 mg PO BEDTIME [facility] Last Admin: 10/15/24 22:33 Dose: 50 mg Documented By: (2) Admin: 10/14/24 22:24 Dose: 50 mg Documented By: JEFFREY Quetiapine Fumarate (Quetiapine 25 Mg Tablet) 50 mg PO DAILY [facility] Quetiapine Fumarate (Quetiapine 25 Mg Tablet) 50 mg PO BEDTIME [facility] Last Admin: 10/18/24 20:01 Dose: 50 mg Documented By: Admin: 10/17/24 20:04 Dose: 50 mg Documented By: Admin: 10/16/24 20:03 Dose: 50 mg Documented By: VISH Quetiapine Fumarate (Quetiapine 25 Mg Tablet) 100 mg PO NOW ONE Stop: 10/16/24 21:11 Last Admin: 10/16/24 21:34 Dose: 100 mg Documented By: MARIELLE Vital Signs Vital signs: Vital Signs - 8 hr 10/15/24 18:14 10/15/24 18:14 Temperature 97.5 F L Pulse Rate 89 Respiratory Rate 20 Blood Pressure 133/64 Pulse Oximetry 94 <Mitul Prieto MD - Last Filed: 10/16/24 04:54> Orders Ordered: Acetaminophen (Acetaminophen 325 Mg Tablet) 650 mg PO Q6H PRN PRN Reason: Pain, Mild (1-3) Atorvastatin Calcium (Atorvastatin 20 Mg Tablet) 20 mg PO DAILY [facility] Last Admin: 10/20/24 08:56 Dose: 20 mg Documented By: Admin: 10/19/24 08:16 Dose: 20 mg Documented By: Admin: 10/18/24 08:05 Dose: 20 mg Documented By: Admin: 10/17/24 08:49 Dose: 20 mg Documented By: Admin: 10/16/24 09:14 Dose: 20 mg Documented By: BT Celecoxib (Celecoxib 100 Mg Capsule) 100 mg PO DAILY [facility] Last Admin: 10/20/24 08:56 Dose: 100 mg Documented By: Admin: 10/19/24 08:16 Dose: 100 mg Documented By: Admin: 10/18/24 08:05 Dose: 100 mg Documented By: Admin: 10/17/24 08:49 Dose: 100 mg Documented By: Admin: 10/16/24 09:14 Dose: 100 mg Documented By: BT Cyclobenzaprine HCl (Cyclobenzaprine 10 Mg Tablet) 10 mg PO TID PRN PRN Reason: muscle spasms Last Admin: 10/19/24 20:10 Dose: 10 mg Documented By: Admin: 10/19/24 13:16 Dose: 10 mg Documented By: Admin: 10/19/24 08:16 Dose: 10 mg Documented By: Admin: 10/18/24 08:05 Dose: 10 mg Documented By: Admin: 10/17/24 22:37 Dose: 10 mg Documented By: Admin: 10/17/24 14:39 Dose: 10 mg Documented By: Admin: 10/17/24 08:49 Dose: 10 mg Documented By: SB Haloperidol (Haloperidol 5 Mg/Ml Vial) 5 mg IM Q2HR PRN PRN Reason: Agitation Last Admin: 10/20/24 19:59 Dose: 5 mg Documented By: Admin: 10/20/24 17:36 Dose: 5 mg Documented By: Admin: 10/19/24 19:36 Dose: 5 mg Documented By: Admin: 10/19/24 12:19 Dose: 5 mg Documented By: CAROLYNE Heparin Sodium (Porcine) (Heparin 5,000 Unit/Ml Vial) 5,000 unit SUBCUT BID [facility] Last Admin: 10/20/24 20:00 Dose: 5,000 unit Documented By: Admin: 10/20/24 08:56 Dose: 5,000 unit Documented By: Admin: 10/19/24 20:11 Dose: 5,000 unit Documented By: Admin: 10/19/24 08:16 Dose: 5,000 unit Documented By: Admin: 10/18/24 20:01 Dose: 5,000 unit Documented By: Admin: 10/18/24 08:06 Dose: 5,000 unit Documented By: Admin: 10/17/24 20:05 Dose: Not Given Documented By: Admin: 10/17/24 08:49 Dose: 5,000 unit Documented By: Admin: 10/16/24 19:35 Dose: 5,000 unit Documented By: Admin: 10/16/24 09:14 Dose: 5,000 unit Documented By: Admin: 10/15/24 21:45 Dose: 5,000 unit Documented By: MS(2) Hydroxyzine HCl (Hydroxyzine 50 Mg/Ml Inj) 25 mg IM Q4HR PRN PRN Reason: Nausea Last Admin: 10/19/24 13:39 Dose: 25 mg Documented By: CAROLYNE Levothyroxine Sodium (Levothyroxine 50 Mcg Tablet) 50 mcg PO DAILY@0600 [facility] Last Admin: 10/21/24 05:51 Dose: 50 mcg Documented By: Admin: 10/20/24 05:53 Dose: 50 mcg Documented By: Admin: 10/19/24 07:36 Dose: 50 mcg Documented By: Admin: 10/18/24 08:05 Dose: 50 mcg Documented By: Admin: 10/17/24 05:09 Dose: Not Given Documented By: Admin: 10/16/24 05:32 Dose: Not Given Documented By: [email or web address](2) Admin: 10/15/24 08:38 Dose: 50 mcg Documented By: SPF Melatonin (Melatonin 3 Mg Tablet) 3 mg PO BEDTIME [facility] Last Admin: 10/20/24 20:00 Dose: 3 mg Documented By: Admin: 10/19/24 20:10 Dose: 3 mg Documented By: Admin: 10/18/24 20:01 Dose: 3 mg Documented By: Admin: 10/17/24 20:04 Dose: 3 mg Documented By: Admin: 10/16/24 19:34 Dose: 3 mg Documented By: Admin: 10/15/24 22:33 Dose: 3 mg Documented By: (2) Admin: 10/14/24 22:24 Dose: 3 mg Documented By: JEFFREY Naloxone HCl (Naloxone 0.4 Mg/Ml Vial) 0.2 mg IV Q2MIN PRN PRN Reason: Opiate Reversal Stored In Pharmacy 1 each PO PRN PRN PRN Reason: PROTOCOL Olanzapine (Olanzapine 2.5 Mg Tablet) 10 mg PO BID [facility] [facility] Last Admin: 10/20/24 20:03 Dose: 10 mg Documented By: Admin: 10/20/24 08:56 Dose: 10 mg Documented By: Admin: 10/19/24 20:10 Dose: 10 mg Documented By: CLIFTON Ondansetron HCl (Ondansetron 4 Mg/2 Ml Inj) 4 mg IV Q8HR PRN PRN Reason: Nausea And Vomiting Quetiapine Fumarate (Quetiapine 25 Mg Tablet) 100 mg PO BEDTIME [facility] Last Admin: 10/20/24 20:00 Dose: 100 mg Documented By: Admin: 10/19/24 20:11 Dose: 100 mg Documented By: CLIFTON Discontinued Medications Alprazolam (Alprazolam 0.25 Mg Tablet) 0.25 mg PO NOW ONE Stop: 10/18/24 23:39 Last Admin: 10/19/24 01:27 Dose: Not Given Documented By: Celecoxib (Celecoxib 100 Mg Capsule) 100 mg PO BID [facility] Last Admin: 10/15/24 22:34 Dose: 100 mg Documented By: (2) Admin: 10/15/24 08:39 Dose: 100 mg Documented By: Admin: 10/14/24 22:24 Dose: 100 mg Documented By: JEFFREY Enoxaparin Sodium (Enoxaparin 40 Mg/0.4 Ml Syringe) 40 mg SUBCUT DAILY [facility] Last Admin: 10/15/24 08:39 Dose: 40 mg Documented By: DARI Haloperidol (Haloperidol 5 Mg/Ml Vial) 5 mg IM NOW ONE Stop: 10/18/24 22:09 Last Admin: 10/18/24 23:06 Dose: 5 mg Documented By: Haloperidol (Haloperidol 5 Mg/Ml Vial) 5 mg IM NOW ONE Stop: 10/19/24 02:56 Last Admin: 10/19/24 05:53 Dose: 5 mg Documented By: Haloperidol (Haloperidol 5 Mg/Ml Vial) 5 mg IM NOW ONE Stop: 10/19/24 14:04 Last Admin: 10/19/24 14:09 Dose: 5 mg Documented By: CAROLYNE Levothyroxine Sodium (Levothyroxine 50 Mcg Tablet) 50 mcg PO DAILY [facility] Lorazepam (Lorazepam 2 Mg/Ml Inj) 1 mg IV NOW ONE Stop: 10/14/24 07:52 Last Admin: 10/14/24 07:58 Dose: 1 mg Documented By: MLM Lorazepam (Lorazepam 0.5 Mg Tablet) 0.5 mg PO NOW ONE Stop: 10/15/24 18:37 Last Admin: 10/15/24 18:41 Dose: 0.5 mg Documented By: RB Olanzapine (Olanzapine 2.5 Mg Tablet) 5 mg PO BID [facility] Last Admin: 10/17/24 08:49 Dose: 5 mg Documented By: Admin: 10/16/24 19:34 Dose: 5 mg Documented By: Admin: 10/16/24 09:14 Dose: 5 mg Documented By: Admin: 10/15/24 22:33 Dose: 5 mg Documented By: (2) Admin: 10/15/24 08:38 Dose: 5 mg Documented By: Admin: 10/14/24 22:24 Dose: 5 mg Documented By: JEFFREY Olanzapine (Olanzapine 10 Mg Vial) 10 mg IM NOW ONE Stop: 10/16/24 22:51 Last Admin: 10/17/24 00:02 Dose: 10 mg Documented By: MARIELLE Olanzapine (Olanzapine 2.5 Mg Tablet) 5 mg PO DAILY [facility] Last Admin: 10/19/24 08:16 Dose: 5 mg Documented By: Admin: 10/18/24 08:05 Dose: 5 mg Documented By: DIXON Olanzapine (Olanzapine 2.5 Mg Tablet) 10 mg PO BEDTIME [facility] Last Admin: 10/18/24 20:01 Dose: 10 mg Documented By: Admin: 10/17/24 20:05 Dose: 10 mg Documented By: Olanzapine (Olanzapine 2.5 Mg Tablet) 5 mg PO NOW ONE Stop: 10/17/24 17:06 Last Admin: 10/17/24 17:44 Dose: 5 mg Documented By: DIXON Olanzapine (Olanzapine 2.5 Mg Tablet) 5 mg PO NOW ONE Stop: 10/19/24 13:35 Last Admin: 10/19/24 13:38 Dose: 5 mg Documented By: CAROLYNE Quetiapine Fumarate (Quetiapine 25 Mg Tablet) 25 mg PO NOW ONE Stop: 10/14/24 03:33 Last Admin: 10/14/24 03:45 Dose: 25 mg Documented By: LINDSAY Quetiapine Fumarate (Quetiapine 25 Mg Tablet) 50 mg PO NOW ONE Stop: 10/14/24 04:24 Last Admin: 10/14/24 04:33 Dose: 50 mg Documented By: Quetiapine Fumarate (Quetiapine 25 Mg Tablet) 50 mg PO BEDTIME [facility] Last Admin: 10/15/24 22:33 Dose: 50 mg Documented By: (2) Admin: 10/14/24 22:24 Dose: 50 mg Documented By: JEFFREY Quetiapine Fumarate (Quetiapine 25 Mg Tablet) 50 mg PO DAILY [facility] Quetiapine Fumarate (Quetiapine 25 Mg Tablet) 50 mg PO BEDTIME [facility] Last Admin: 10/18/24 20:01 Dose: 50 mg Documented By: Admin: 10/17/24 20:04 Dose: 50 mg Documented By: Admin: 10/16/24 20:03 Dose: 50 mg Documented By: VISH Quetiapine Fumarate (Quetiapine 25 Mg Tablet) 100 mg PO NOW ONE Stop: 10/16/24 21:11 Last Admin: 10/16/24 21:34 Dose: 100 mg Documented By: MARIELLE Vital Signs Vital signs: Vital Signs - 8 hr 10/15/24 18:14 10/15/24 18:14 Temperature 97.5 F L Pulse Rate 89 Respiratory Rate 20 Blood Pressure 133/64 Pulse Oximetry 94 MDM - Psych <Tiffanie Meehan MD - Last Filed: 10/21/24 07:14> Lab Data 10/16/24 06:35 10/16/24 06:35 Labs: Lab Results 10/13/24 10/13/24 10/14/24 Range/Units 21:34 22:27 01:28 WBC 7.7 (4.5-11.0) X10^3/uL RBC 4.57 (4.0-5.2) X10^6/uL Hgb 13.7 (12.0-16.0) g/dL Hct 40.7 (36-46) % MCV 88.9 (80-100) fL MCH 29.9 (26-34) PG MCHC 33.6 (30-36) % RDW 12.8 (11.6-14.8) % Plt Count 176 (150-400) X10^3/uL Neut % (Auto) 64.0 (50-75) % Lymph % (Auto) 24.5 L (25-40) % [place] % (Auto) 8.1 (3-14) % Eos % (Auto) 2.0 (2-4) % Baso % (Auto) 1.4 (0-2) % Neut # (Auto) 4900 (3827-7966) /uL Lymph # (Auto) 1900 (6080-7409) /uL [place] # (Auto) 600 (0-900) /uL Eos # (Auto) 200 (0-450) /uL Baso # (Auto) 100 (0-100) /uL Sodium 138 (137-145) mmol/L Potassium 3.5 (3.4-5.1) mmol/L Chloride 101 (98-107) mmol/L Carbon Dioxide 25 (22-32) mmol/L BUN 21 H (7-17) mg/dL Creatinine 0.78 (0.52-1.04) mg/dL Estimated GFR > 60 (>60) mL/min BUN/Creatinine Ratio 26.9 H (6-22) Glucose 221 H (80-110) mg/dL Calcium 9.5 (8.4-10.2) mg/dL Total Bilirubin 0.5 (0.2-1.3) mg/dL AST 35 (14-36) IU/L ALT 33 (<35) IU/L Alkaline Phosphatase 111 (38-126) U/L Total Protein 7.9 (6.3-8.2) g/dL Albumin 4.6 (3.5-5.0) g/dL Globulin 3.3 (1.7-4.1) g/dL Albumin/Globulin Ratio 1.4 (1.0-2.8) TSH 0.91 (0.47-4.68) uIU/mL Urine Color Yellow Urine Appearance Clear Urine pH 5.5 (4.5-8.0) Ur Specific [place] 1.010 (1.000-1.035) Urine Protein Negative (Negative) Urine Glucose (UA) Negative (Negative) g/dL Urine Ketones Negative (NEGATIVE) Urine Occult Blood Negative (Negative) Urine Nitrate Negative (Negative) Urine Bilirubin Negative (NEGATIVE) Urine Urobilinogen 0.2 (0.2) E.U./dL Ur Leukocyte Esterase 1+ H (NEGATIVE) Urine RBC None seen (0-5/HPF) Urine WBC 1-5/hpf (0-5/HPF) Ur Squamous Epith Cells 0-1 /hpf (0-5/HPF) Urine Bacteria Occasional (0-1) (None) Ur Culture Indicated? Specimen cultured Vol Urine Centrifuged 10ml (spun) U Opiates 300ng/mL cut Negative (Negative) Ur Oxycodone Screen Negative (Negative) Urine Methadone Screen Negative (Negative) Ur Barbiturates Screen Negative (Negative) U Tricyclic Antidepress Positive H (Negative) Ur Phencyclidine Scrn Negative (Negative) Ur Amphetamines Screen Negative (Negative) U Methamphetamines Scrn Negative (Negative) Ur MDMA Scrn (Ecstasy) Negative (Negative) U Benzodiazepines Scrn Negative (Negative) Urine Cocaine Screen Negative (Negative) U Marijuana (THC) Screen Negative (Negative) Urine Specific [place] (Normal) Ethyl Alcohol < 10 ( - 10) mg/dL Ur Creatinine (Normal) SARS-CoV-2 (PCR) Negative (Negative) 10/14/ Range/Units 01:28 WBC (4.5-11.0) X10^3/uL RBC (4.0-5.2) X10^6/uL Hgb (12.0-16.0) g/dL Hct (36-46) % MCV (80-100) fL MCH (26-34) PG MCHC (30-36) % RDW (11.6-14.8) % Plt Count (150-400) X10^3/uL Neut % (Auto) (50-75) % Lymph % (Auto) (25-40) % [place] % (Auto) (3-14) % Eos % (Auto) (2-4) % Baso % (Auto) (0-2) % Neut # (Auto) (5403-1104) /uL Lymph # (Auto) (3458-1341) /uL [place] # (Auto) (0-900) /uL Eos # (Auto) (0-450) /uL Baso # (Auto) (0-100) /uL Sodium (137-145) mmol/L Potassium (3.4-5.1) mmol/L Chloride (98-107) mmol/L Carbon Dioxide (22-32) mmol/L BUN (7-17) mg/dL Creatinine (0.52-1.04) mg/dL Estimated GFR (>60) mL/min BUN/Creatinine Ratio (6-22) Glucose (80-110) mg/dL Calcium (8.4-10.2) mg/dL Total Bilirubin (0.2-1.3) mg/dL AST (14-36) IU/L ALT (<35) IU/L Alkaline Phosphatase (38-126) U/L Total Protein (6.3-8.2) g/dL Albumin (3.5-5.0) g/dL Globulin (1.7-4.1) g/dL Albumin/Globulin Ratio (1.0-2.8) TSH (0.47-4.68) uIU/mL Urine Color Urine Appearance Urine pH Normal (4.5-8.0) Ur Specific [place] (1.000-1.035) Urine Protein (Negative) Urine Glucose (UA) (Negative) g/dL Urine Ketones (NEGATIVE) Urine Occult Blood (Negative) Urine Nitrate (Negative) Urine Bilirubin (NEGATIVE) Urine Urobilinogen (0.2) E.U./dL Ur Leukocyte Esterase (NEGATIVE) Urine RBC (0-5/HPF) Urine WBC (0-5/HPF) Ur Squamous Epith Cells (0-5/HPF) Urine Bacteria (None) Ur Culture Indicated? Vol Urine Centrifuged U Opiates 300ng/mL cut (Negative) Ur Oxycodone Screen (Negative) Urine Methadone Screen (Negative) Ur Barbiturates Screen (Negative) U Tricyclic Antidepress (Negative) Ur Phencyclidine Scrn (Negative) Ur Amphetamines Screen (Negative) U Methamphetamines Scrn (Negative) Ur MDMA Scrn (Ecstasy) (Negative) U Benzodiazepines Scrn (Negative) Urine Cocaine Screen (Negative) U Marijuana (THC) Screen (Negative) Urine Specific [place] Normal (Normal) Ethyl Alcohol ( - 10) mg/dL Ur Creatinine Normal (Normal) SARS-CoV-2 (PCR) (Negative) Point of Care Testing Glucose POC 167 MDM Narrative Medical decision making narrative: CC:Visual and auditory hallucinations Complicating co-morbidities: fell and hit her head on August 15 without further evaluation. Fell on outstretched hand last week still hurting no further evaluation Data collected from: patient, friend accompanying her Social determinants of health that may influence the patients condition: Patient apparently was living on [facility] for a number of years, she and her move to [place], he at least 5 years ago. She returned to [facility] to stay with friends who offered her low rent and help with getting to medical appointments and transportation. It seems she returned back to work is in June. In the last 2 months she has been having more and more hallucinations, seeing people including her who are regularly talking to her and seeming to become more and more angry and demanding Differential considered: acute psychosis, Psychotic depression,intracranial bleeding, medication reaction, wrist fracture Exam documented above, pertinent findings include: physically patient does have a broken wrist that is now splinted. Remainder of exam is benign. Psychiatrically she is tearful, recognizes that she is having hallucinations however the hallucinations are becoming more and more frightening. Lab Test results independently reviewed as above. Pertinent findings: CBC is unremarkable chemistries show normal sodium and potassium. Creatinine is appropriate at 0.78. Glucose is slightly elevated at 221. Calcium is appropriate. No liver study abnormalities thyroid within normal range at 0.91 urine is unremarkable it has been cultured I do not suspect infection urine tox screen is positive for tricyclic antidepressants only alcohol level is undetectable screening COVID test is negative Independently reviewed EKG: Sinus rhythm at a rate of 81. QTC is 455. No acute ischemic changes Imaging studies independently reviewed: CT scan of the head without contrast is unremarkable x-ray of the left wrist does show comminuted slightly displaced distal radial and displaced fracture of the ulnar styloid tip Consultations: Treatments: sugar-tong splint and sling are placed on the left upper extremity for the wrist fracture. Patient is neurovascularly intact pre and post placement and pain is controlled with improved immobilization. Re-evaluations: Patient is not sure which medication she takes and with the tangential winding history corroboration is going to be required from outside sources not available in the middle of the night. Discussion: 79-year-old woman with increasing hallucinations visual and auditory becoming more intrusive. Tearful and tangential. Agrees to 25 mg of Seroquel tonight to help with sleep. she is currently medically cleared. At some point she will need to see orthopedic doctors for casting the sugar-tong splint of the left upper extremity is adequate for now tomorrow we will need social work involvement and will need to talk to her friends and hopefully get additional medical records to figure out what medication she is taking, what has changed and which parts of her story can be more further corroborated in which parts are involved in her delusions and hallucinations. 425am increasing agitation, yelling at her in other people in the room to get out. 45 minutes after initial 25 mg of Seroquel symptoms are not improving. We will try 50 mg of Seroquel and continue to evaluate. October 14, 2024 at 7:[address] Clifford: Sign-out from Dr. Castillo, patient awaiting for social work consult. Seroquel was given last night. Patient here for auditory visual hallucinations. No prior history. Awaiting for either friends or family to help with history. Social work consult has been placed. Patient is medically cleared. 7:44 a.m.. I entered room, patient was actually looking to the left and speaking / hallucinating to person that is not there. She was redirectable and able to converse with me. She is cooperative. She understands we are waiting for social work consult and any friends or family to help with history. left hand Examination fingers areis warm soft pink. Brisk cap refills light touch the finger and thumb. 8:00 a.m.. Patient became agitated. Requiring Ativan for agitation. 12:00 p.m.. No new events. Patient resting comfortably 4:00 p.m.. No new issues. Social work has not been able to assess patient due to Ativan and Seroquel making her very somnolent. But is arousable. Vital signs are reassuring. 6:[address] Clifford: Sign out to Dr. Castillo, social work will need to assess patient tomorrow as she has been too somnolent today. May need Zyprexa or olanzapine 8pm care is reviewed DCR. At this point I do not think the patient is decisional despite that she is voluntary. Does not appear that we were able to obtain a med list we will see if director of social work can work on that right now. I will make sure vitals are updated and DCR is anticipated in the emergency department for relief interview at 9:00 p.mBrandy titus additional history garnered from the SIGN DESIGNER indicates that the patient's primary care physician on [facility] recently started her on quetiapine 50 mg, she continues on atorvastatin 20 mg, celecoxib 100 mg b.i.d., cyclobenzaprine as needed for muscle spasm, thyroid 50 mcg. 10pm discussion with SIGN DESIGNER. Currently there are no [facility] beds available at all. Patient does not have any place to be discharged to from the emergency department. Apparently the friend from whom she was renting a space who brought her in is not willing to have her come back. We will ask SIGN DESIGNER to talk to APS workers to see if we can work on definitive housing for discharge. In the meantime home medications are restarted. Will have her start Zyprexa 5 mg b.i.d. with Seroquel 50 mg at bedtime to see if this helps with some of the psychotic behaviors that seemed to be exacerbated in the evening. We will also add melatonin is her current circadian rhythms do not exist. If symptoms continue, placement can be found possibility of a social admit we will need to be considered. 11pm discussion with her primary care physician on [place]. He reports that she is estranged from 1 son, another son is homeless, there is a niece who does not have any interest in being involved. Believes she has few resources otherwise. <Arslan Clifford MD - Last Filed: 10/18/24 07:27> Lab Data Labs: Lab Results 10/13/24 10/13/24 10/14/24 Range/Units 21:34 22:27 01:28 WBC 7.7 (4.5-11.0) X10^3/uL RBC 4.57 (4.0-5.2) X10^6/uL Hgb 13.7 (12.0-16.0) g/dL Hct 40.7 (36-46) % MCV 88.9 (80-100) fL MCH 29.9 (26-34) PG MCHC 33.6 (30-36) % RDW 12.8 (11.6-14.8) % Plt Count 176 (150-400) X10^3/uL Neut % (Auto) 64.0 (50-75) % Lymph % (Auto) 24.5 L (25-40) % [place] % (Auto) 8.1 (3-14) % Eos % (Auto) 2.0 (2-4) % Baso % (Auto) 1.4 (0-2) % Neut # (Auto) 4900 (2411-0466) /uL Lymph # (Auto) 1900 (4055-0338) /uL [place] # (Auto) 600 (0-900) /uL Eos # (Auto) 200 (0-450) /uL Baso # (Auto) 100 (0-100) /uL Sodium 138 (137-145) mmol/L Potassium 3.5 (3.4-5.1) mmol/L Chloride 101 (98-107) mmol/L Carbon Dioxide 25 (22-32) mmol/L BUN 21 H (7-17) mg/dL Creatinine 0.78 (0.52-1.04) mg/dL Estimated GFR > 60 (>60) mL/min BUN/Creatinine Ratio 26.9 H (6-22) Glucose 221 H (80-110) mg/dL Calcium 9.5 (8.4-10.2) mg/dL Total Bilirubin 0.5 (0.2-1.3) mg/dL AST 35 (14-36) IU/L ALT 33 (<35) IU/L Alkaline Phosphatase 111 (38-126) U/L Total Protein 7.9 (6.3-8.2) g/dL Albumin 4.6 (3.5-5.0) g/dL Globulin 3.3 (1.7-4.1) g/dL Albumin/Globulin Ratio 1.4 (1.0-2.8) TSH 0.91 (0.47-4.68) uIU/mL Urine Color Yellow Urine Appearance Clear Urine pH 5.5 (4.5-8.0) Ur Specific [place] 1.010 (1.000-1.035) Urine Protein Negative (Negative) Urine Glucose (UA) Negative (Negative) g/dL Urine Ketones Negative (NEGATIVE) Urine Occult Blood Negative (Negative) Urine Nitrate Negative (Negative) Urine Bilirubin Negative (NEGATIVE) Urine Urobilinogen 0.2 (0.2) E.U./dL Ur Leukocyte Esterase 1+ H (NEGATIVE) Urine RBC None seen (0-5/HPF) Urine WBC 1-5/hpf (0-5/HPF) Ur Squamous Epith Cells 0-1 /hpf (0-5/HPF) Urine Bacteria Occasional (0-1) (None) Ur Culture Indicated? Specimen cultured Vol Urine Centrifuged 10ml (spun) U Opiates 300ng/mL cut Negative (Negative) Ur Oxycodone Screen Negative (Negative) Urine Methadone Screen Negative (Negative) Ur Barbiturates Screen Negative (Negative) U Tricyclic Antidepress Positive H (Negative) Ur Phencyclidine Scrn Negative (Negative) Ur Amphetamines Screen Negative (Negative) U Methamphetamines Scrn Negative (Negative) Ur MDMA Scrn (Ecstasy) Negative (Negative) U Benzodiazepines Scrn Negative (Negative) Urine Cocaine Screen Negative (Negative) U Marijuana (THC) Screen Negative (Negative) Urine Specific [place] (Normal) Ethyl Alcohol < 10 ( - 10) mg/dL Ur Creatinine (Normal) SARS-CoV-2 (PCR) Negative (Negative) 10/14/24 Range/Units 01:28 WBC (4.5-11.0) X10^3/uL RBC (4.0-5.2) X10^6/uL Hgb (12.0-16.0) g/dL Hct (36-46) % MCV (80-100) fL MCH (26-34) PG MCHC (30-36) % RDW (11.6-14.8) % Plt Count (150-400) X10^3/uL Neut % (Auto) (50-75) % Lymph % (Auto) (25-40) % [place] % (Auto) (3-14) % Eos % (Auto) (2-4) % Baso % (Auto) (0-2) % Neut # (Auto) (3759-3633) /uL Lymph # (Auto) (7598-2721) /uL [place] # (Auto) (0-900) /uL Eos # (Auto) (0-450) /uL Baso # (Auto) (0-100) /uL Sodium (137-145) mmol/L Potassium (3.4-5.1) mmol/L Chloride (98-107) mmol/L Carbon Dioxide (22-32) mmol/L BUN (7-17) mg/dL Creatinine (0.52-1.04) mg/dL Estimated GFR (>60) mL/min BUN/Creatinine Ratio (6-22) Glucose (80-110) mg/dL Calcium (8.4-10.2) mg/dL Total Bilirubin (0.2-1.3) mg/dL AST (14-36) IU/L ALT (<35) IU/L Alkaline Phosphatase (38-126) U/L Total Protein (6.3-8.2) g/dL Albumin (3.5-5.0) g/dL Globulin (1.7-4.1) g/dL Albumin/Globulin Ratio (1.0-2.8) TSH (0.47-4.68) uIU/mL Urine Color Urine Appearance Urine pH Normal (4.5-8.0) Ur Specific [place] (1.000-1.035) Urine Protein (Negative) Urine Glucose (UA) (Negative) g/dL Urine Ketones (NEGATIVE) Urine Occult Blood (Negative) Urine Nitrate (Negative) Urine Bilirubin (NEGATIVE) Urine Urobilinogen (0.2) E.U./dL Ur Leukocyte Esterase (NEGATIVE) Urine RBC (0-5/HPF) Urine WBC (0-5/HPF) Ur Squamous Epith Cells (0-5/HPF) Urine Bacteria (None) Ur Culture Indicated? Vol Urine Centrifuged U Opiates 300ng/mL cut (Negative) Ur Oxycodone Screen (Negative) Urine Methadone Screen (Negative) Ur Barbiturates Screen (Negative) U Tricyclic Antidepress (Negative) Ur Phencyclidine Scrn (Negative) Ur Amphetamines Screen (Negative) U Methamphetamines Scrn (Negative) Ur MDMA Scrn (Ecstasy) (Negative) U Benzodiazepines Scrn (Negative) Urine Cocaine Screen (Negative) U Marijuana (THC) Screen (Negative) Urine Specific [place] Normal (Normal) Ethyl Alcohol ( - 10) mg/dL Ur Creatinine Normal (Normal) SARS-CoV-2 (PCR) (Negative) Point of Care Testing Glucose POC 167 MDM Narrative Medical decision making narrative: CC:Visual and auditory hallucinations Complicating co-morbidities: fell and hit her head on August 15 without further evaluation. Fell on outstretched hand last week still hurting no further evaluation Data collected from: patient, friend accompanying her Social determinants of health that may influence the patients condition: Patient apparently was living on [facility] for a number of years, she and her move to [place], he at least 5 years ago. She returned to [facility] to stay with friends who offered her low rent and help with getting to medical appointments and transportation. It seems she returned back to work is in June. In the last 2 months she has been having more and more hallucinations, seeing people including her who are regularly talking to her and seeming to become more and more angry and demanding Differential considered: acute psychosis, Psychotic depression,intracranial bleeding, medication reaction, wrist fracture Exam documented above, pertinent findings include: physically patient does have a broken wrist that is now splinted. Remainder of exam is benign. Psychiatrically she is tearful, recognizes that she is having hallucinations however the hallucinations are becoming more and more frightening. Lab Test results independently reviewed as above. Pertinent findings: CBC is unremarkable chemistries show normal sodium and potassium. Creatinine is appropriate at 0.78. Glucose is slightly elevated at 221. Calcium is appropriate. No liver study abnormalities thyroid within normal range at 0.91 urine is unremarkable it has been cultured I do not suspect infection urine tox screen is positive for tricyclic antidepressants only alcohol level is undetectable screening COVID test is negative Independently reviewed EKG: Sinus rhythm at a rate of 81. QTC is 455. No acute ischemic changes Imaging studies independently reviewed: CT scan of the head without contrast is unremarkable x-ray of the left wrist does show comminuted slightly displaced distal radial and displaced fracture of the ulnar styloid tip Consultations: Treatments: sugar-tong splint and sling are placed on the left upper extremity for the wrist fracture. Patient is neurovascularly intact pre and post placement and pain is controlled with improved immobilization. Re-evaluations: Patient is not sure which medication she takes and with the tangential winding history corroboration is going to be required from outside sources not available in the middle of the night. Discussion: 79-year-old woman with increasing hallucinations visual and auditory becoming more intrusive. Tearful and tangential. Agrees to 25 mg of Seroquel tonight to help with sleep. she is currently medically cleared. At some point she will need to see orthopedic doctors for casting the sugar-tong splint of the left upper extremity is adequate for now tomorrow we will need social work involvement and will need to talk to her friends and hopefully get additional medical records to figure out what medication she is taking, what has changed and which parts of her story can be more further corroborated in which parts are involved in her delusions and hallucinations. 425am increasing agitation, yelling at her in other people in the room to get out. 45 minutes after initial 25 mg of Seroquel symptoms are not improving. We will try 50 mg of Seroquel and continue to evaluate. October 14, 2024 at 7:[address] Clifford: Sign-out from Dr. Castillo, patient awaiting for social work consult. Seroquel was given last night. Patient here for auditory visual hallucinations. No prior history. Awaiting for either friends or family to help with history. Social work consult has been placed. Patient is medically cleared. 7:44 a.m.. I entered room, patient was actually looking to the left and speaking / hallucinating to person that is not there. She was redirectable and able to converse with me. She is cooperative. She understands we are waiting for social work consult and any friends or family to help with history. left hand Examination fingers areis warm soft pink. Brisk cap refills light touch the finger and thumb. 8:00 a.m.. Patient became agitated. Requiring Ativan for agitation. 12:00 p.m.. No new events. Patient resting comfortably 4:00 p.m.. No new issues. Social work has not been able to assess patient due to Ativan and Seroquel making her very somnolent. But is arousable. Vital signs are reassuring. 6:[address] Clifford: Sign out to Dr. Castillo, social work will need to assess patient tomorrow as she has been too somnolent today. May need Zyprexa or olanzapine 8pm care is reviewed DCR. At this point I do not think the patient is decisional despite that she is voluntary. Does not appear that we were able to obtain a med list we will see if director of social work can work on that right now. I will make sure vitals are updated and DCR is anticipated in the emergency department for relief interview at 9:00 p.mBrandy titus additional history garnered from the [facility] indicates that the patient's primary care physician on [facility] recently started her on quetiapine 50 mg, she continues on atorvastatin 20 mg, celecoxib 100 mg b.i.d., cyclobenzaprine as needed for muscle spasm, thyroid 50 mcg. 10pm discussion with SIGN DESIGNER. Currently there are no [facility] beds available at all. Patient does not have any place to be discharged to from the emergency department. Apparently the friend from whom she was renting a space who brought her in is not willing to have her come back. We will ask SIGN DESIGNER to talk to APS workers to see if we can work on definitive housing for discharge. In the meantime home medications are restarted. Will have her start Zyprexa 5 mg b.i.d. with Seroquel 50 mg at bedtime to see if this helps with some of the psychotic behaviors that seemed to be exacerbated in the evening. We will also add melatonin is her current circadian rhythms do not exist. If symptoms continue, placement can be found possibility of a social admit we will need to be considered. 11pm discussion with her primary care physician on [place]. He reports that she is estranged from 1 son, another son is homeless, there is a niece who does not have any interest in being involved. Believes she has few resources otherwise. October 15, 2024 at 7:[address] Clifford: Sign-out from Dr. Castillo. Medications have been placed for patient. Diet ordered. Activity ordered. DVT prophylaxis/Lovenox ordered. DCIS seen patient but no beds available. Patient may need admission here after 40 hours for social admit. 7:30 a.m.. I entered patient's room. Patient is sleeping comfortably. No new issues reported by staff. 9:00 a.m.. I informed by medical staff here that patient will need to be admitted for social admission. There is no possibility that patient will be transferred this weekend. Patient will be here more than 48 hours after this evening. 6:[address] Clifford: Sign out to dr prieto, patient will need to be admitted tonight for social admit. Social work has exhausted all efforts as well as DCR. <Mitul Prieto MD - Last Filed: 10/16/24 04:54> Lab Data Labs: Lab Results 10/13/24 10/13/24 10/14/24 Range/Units 21:34 22:27 01:28 WBC 7.7 (4.5-11.0) X10^3/uL RBC 4.57 (4.0-5.2) X10^6/uL Hgb 13.7 (12.0-16.0) g/dL Hct 40.7 (36-46) % MCV 88.9 (80-100) fL MCH 29.9 (26-34) PG MCHC 33.6 (30-36) % RDW 12.8 (11.6-14.8) % Plt Count 176 (150-400) X10^3/uL Neut % (Auto) 64.0 (50-75) % Lymph % (Auto) 24.5 L (25-40) % [place] % (Auto) 8.1 (3-14) % Eos % (Auto) 2.0 (2-4) % Baso % (Auto) 1.4 (0-2) % Neut # (Auto) 4900 (7038-1288) /uL Lymph # (Auto) 1900 (3277-5073) /uL [place] # (Auto) 600 (0-900) /uL Eos # (Auto) 200 (0-450) /uL Baso # (Auto) 100 (0-100) /uL Sodium 138 (137-145) mmol/L Potassium 3.5 (3.4-5.1) mmol/L Chloride 101 (98-107) mmol/L Carbon Dioxide 25 (22-32) mmol/L BUN 21 H (7-17) mg/dL Creatinine 0.78 (0.52-1.04) mg/dL Estimated GFR > 60 (>60) mL/min BUN/Creatinine Ratio 26.9 H (6-22) Glucose 221 H (80-110) mg/dL Calcium 9.5 (8.4-10.2) mg/dL Total Bilirubin 0.5 (0.2-1.3) mg/dL AST 35 (14-36) IU/L ALT 33 (<35) IU/L Alkaline Phosphatase 111 (38-126) U/L Total Protein 7.9 (6.3-8.2) g/dL Albumin 4.6 (3.5-5.0) g/dL Globulin 3.3 (1.7-4.1) g/dL Albumin/Globulin Ratio 1.4 (1.0-2.8) TSH 0.91 (0.47-4.68) uIU/mL Urine Color Yellow Urine Appearance Clear Urine pH 5.5 (4.5-8.0) Ur Specific [place] 1.010 (1.000-1.035) Urine Protein Negative (Negative) Urine Glucose (UA) Negative (Negative) g/dL Urine Ketones Negative (NEGATIVE) Urine Occult Blood Negative (Negative) Urine Nitrate Negative (Negative) Urine Bilirubin Negative (NEGATIVE) Urine Urobilinogen 0.2 (0.2) E.U./dL Ur Leukocyte Esterase 1+ H (NEGATIVE) Urine RBC None seen (0-5/HPF) Urine WBC 1-5/hpf (0-5/HPF) Ur Squamous Epith Cells 0-1 /hpf (0-5/HPF) Urine Bacteria Occasional (0-1) (None) Ur Culture Indicated? Specimen cultured Vol Urine Centrifuged 10ml (spun) U Opiates 300ng/mL cut Negative (Negative) Ur Oxycodone Screen Negative (Negative) Urine Methadone Screen Negative (Negative) Ur Barbiturates Screen Negative (Negative) U Tricyclic Antidepress Positive H (Negative) Ur Phencyclidine Scrn Negative (Negative) Ur Amphetamines Screen Negative (Negative) U Methamphetamines Scrn Negative (Negative) Ur MDMA Scrn (Ecstasy) Negative (Negative) U Benzodiazepines Scrn Negative (Negative) Urine Cocaine Screen Negative (Negative) U Marijuana (THC) Screen Negative (Negative) Urine Specific [place] (Normal) Ethyl Alcohol < 10 ( - 10) mg/dL Ur Creatinine (Normal) SARS-CoV-2 (PCR) Negative (Negative) 10/14/ Range/Units 01:28 WBC (4.5-11.0) X10^3/uL RBC (4.0-5.2) X10^6/uL Hgb (12.0-16.0) g/dL Hct (36-46) % MCV (80-100) fL MCH (26-34) PG MCHC (30-36) % RDW (11.6-14.8) % Plt Count (150-400) X10^3/uL Neut % (Auto) (50-75) % Lymph % (Auto) (25-40) % [place] % (Auto) (3-14) % Eos % (Auto) (2-4) % Baso % (Auto) (0-2) % Neut # (Auto) (4785-9025) /uL Lymph # (Auto) (6455-9995) /uL [place] # (Auto) (0-900) /uL Eos # (Auto) (0-450) /uL Baso # (Auto) (0-100) /uL Sodium (137-145) mmol/L Potassium (3.4-5.1) mmol/L Chloride (98-107) mmol/L Carbon Dioxide (22-32) mmol/L BUN (7-17) mg/dL Creatinine (0.52-1.04) mg/dL Estimated GFR (>60) mL/min BUN/Creatinine Ratio (6-22) Glucose (80-110) mg/dL Calcium (8.4-10.2) mg/dL Total Bilirubin (0.2-1.3) mg/dL AST (14-36) IU/L ALT (<35) IU/L Alkaline Phosphatase (38-126) U/L Total Protein (6.3-8.2) g/dL Albumin (3.5-5.0) g/dL Globulin (1.7-4.1) g/dL Albumin/Globulin Ratio (1.0-2.8) TSH (0.47-4.68) uIU/mL Urine Color Urine Appearance Urine pH Normal (4.5-8.0) Ur Specific [place] (1.000-1.035) Urine Protein (Negative) Urine Glucose (UA) (Negative) g/dL Urine Ketones (NEGATIVE) Urine Occult Blood (Negative) Urine Nitrate (Negative) Urine Bilirubin (NEGATIVE) Urine Urobilinogen (0.2) E.U./dL Ur Leukocyte Esterase (NEGATIVE) Urine RBC (0-5/HPF) Urine WBC (0-5/HPF) Ur Squamous Epith Cells (0-5/HPF) Urine Bacteria (None) Ur Culture Indicated? Vol Urine Centrifuged U Opiates 300ng/mL cut (Negative) Ur Oxycodone Screen (Negative) Urine Methadone Screen (Negative) Ur Barbiturates Screen (Negative) U Tricyclic Antidepress (Negative) Ur Phencyclidine Scrn (Negative) Ur Amphetamines Screen (Negative) U Methamphetamines Scrn (Negative) Ur MDMA Scrn (Ecstasy) (Negative) U Benzodiazepines Scrn (Negative) Urine Cocaine Screen (Negative) U Marijuana (THC) Screen (Negative) Urine Specific [place] Normal (Normal) Ethyl Alcohol ( - 10) mg/dL Ur Creatinine Normal (Normal) SARS-CoV-2 (PCR) (Negative) Point of Care Testing Glucose POC 167 MDM Narrative Medical decision making narrative: CC:Visual and auditory hallucinations Complicating co-morbidities: fell and hit her head on August 15 without further evaluation. Fell on outstretched hand last week still hurting no further evaluation Data collected from: patient, friend accompanying her Social determinants of health that may influence the patients condition: Patient apparently was living on [facility] for a number of years, she and her move to [place], he at least 5 years ago. She returned to [facility] to stay with friends who offered her low rent and help with getting to medical appointments and transportation. It seems she returned back to work is in June. In the last 2 months she has been having more and more hallucinations, seeing people including her who are regularly talking to her and seeming to become more and more angry and demanding Differential considered: acute psychosis, Psychotic depression,intracranial bleeding, medication reaction, wrist fracture Exam documented above, pertinent findings include: physically patient does have a broken wrist that is now splinted. Remainder of exam is benign. Psychiatrically she is tearful, recognizes that she is having hallucinations however the hallucinations are becoming more and more frightening. Lab Test results independently reviewed as above. Pertinent findings: CBC is unremarkable chemistries show normal sodium and potassium. Creatinine is appropriate at 0.78. Glucose is slightly elevated at 221. Calcium is appropriate. No liver study abnormalities thyroid within normal range at 0.91 urine is unremarkable it has been cultured I do not suspect infection urine tox screen is positive for tricyclic antidepressants only alcohol level is undetectable screening COVID test is negative Independently reviewed EKG: Sinus rhythm at a rate of 81. QTC is 455. No acute ischemic changes Imaging studies independently reviewed: CT scan of the head without contrast is unremarkable x-ray of the left wrist does show comminuted slightly displaced distal radial and displaced fracture of the ulnar styloid tip Consultations: Treatments: sugar-tong splint and sling are placed on the left upper extremity for the wrist fracture. Patient is neurovascularly intact pre and post placement and pain is controlled with improved immobilization. Re-evaluations: Patient is not sure which medication she takes and with the tangential winding history corroboration is going to be required from outside sources not available in the middle of the night. Discussion: 79-year-old woman with increasing hallucinations visual and auditory becoming more intrusive. Tearful and tangential. Agrees to 25 mg of Seroquel tonight to help with sleep. she is currently medically cleared. At some point she will need to see orthopedic doctors for casting the sugar-tong splint of the left upper extremity is adequate for now tomorrow we will need social work involvement and will need to talk to her friends and hopefully get additional medical records to figure out what medication she is taking, what has changed and which parts of her story can be more further corroborated in which parts are involved in her delusions and hallucinations. 425am increasing agitation, yelling at her in other people in the room to get out. 45 minutes after initial 25 mg of Seroquel symptoms are not improving. We will try 50 mg of Seroquel and continue to evaluate. October 14, 2024 at 7:[address] Clifford: Sign-out from Dr. Castillo, patient awaiting for social work consult. Seroquel was given last night. Patient here for auditory visual hallucinations. No prior history. Awaiting for either friends or family to help with history. Social work consult has been placed. Patient is medically cleared. 7:44 a.m.. I entered room, patient was actually looking to the left and speaking / hallucinating to person that is not there. She was redirectable and able to converse with me. She is cooperative. She understands we are waiting for social work consult and any friends or family to help with history. left hand Examination fingers areis warm soft pink. Brisk cap refills light touch the finger and thumb. 8:00 a.m.. Patient became agitated. Requiring Ativan for agitation. 12:00 p.m.. No new events. Patient resting comfortably 4:00 p.m.. No new issues. Social work has not been able to assess patient due to Ativan and Seroquel making her very somnolent. But is arousable. Vital signs are reassuring. 6:[address] Clifford: Sign out to Dr. Castillo, social work will need to assess patient tomorrow as she has been too somnolent today. May need Zyprexa or olanzapine 8pm care is reviewed DCR. At this point I do not think the patient is decisional despite that she is voluntary. Does not appear that we were able to obtain a med list we will see if director of social work can work on that right now. I will make sure vitals are updated and DCR is anticipated in the emergency department for relief interview at 9:00 p.mBrandy titus additional history garnered from the SIGN DESIGNER indicates that the patient's primary care physician on [facility] recently started her on quetiapine 50 mg, she continues on atorvastatin 20 mg, celecoxib 100 mg b.i.d., cyclobenzaprine as needed for muscle spasm, thyroid 50 mcg. 10pm discussion with SIGN DESIGNER. Currently there are no [facility] beds available at all. Patient does not have any place to be discharged to from the emergency department. Apparently the friend from whom she was renting a space who brought her in is not willing to have her come back. We will ask SIGN DESIGNER to talk to APS workers to see if we can work on definitive housing for discharge. In the meantime home medications are restarted. Will have her start Zyprexa 5 mg b.i.d. with Seroquel 50 mg at bedtime to see if this helps with some of the psychotic behaviors that seemed to be exacerbated in the evening. We will also add melatonin is her current circadian rhythms do not exist. If symptoms continue, placement can be found possibility of a social admit we will need to be considered. 11pm discussion with her primary care physician on [place]. He reports that she is estranged from 1 son, another son is homeless, there is a niece who does not have any interest in being involved. Believes she has few resources otherwise. October 15, 2024 at 7:[address] Clifford: Sign-out from Dr. Castillo. Medications have been placed for patient. Diet ordered. Activity ordered. DVT prophylaxis/Lovenox ordered. DCIS seen patient but no beds available. Patient may need admission here after 40 hours for social admit. 7:30 a.m.. I entered patient's room. Patient is sleeping comfortably. No new issues reported by staff. 9:00 a.m.. I informed by medical staff here that patient will need to be admitted for social admission. There is no possibility that patient will be transferred this weekend. Patient will be here more than 48 hours after this evening. 6:[address] Clifford: Sign out to dr prieto, patient will need to be admitted tonight for social admit. Social work has exhausted all efforts as well as DCR. - patient was admitted to the inpatient service for ongoing management of dementia related behavioral issues, [facility] evaluation and social admission due to greater than 48 hours in the emergency department. - Mitul Prieto Discharge Plan Departure Patient Disposition: Admitted As Inpatient Clinical Impression: Acute psychosis, Auditory hallucination Fracture of wrist, closed Qualifiers: Encounter type: initial encounter Laterality: left Qualified Code(s): S62.102A - Fracture of unspecified carpal bone, left wrist, initial encounter for closed fracture Admit Date/Time: 10/15/24 19:46 Admit Provider: Bossman Buckley
[2024-10-13 23:30] VITALS: BP 108/55; PULSE 81; RESP 16; O2SAT 92
[2024-10-14] VITALS (38 sets, daily range): BP systolic 106–153; BP diastolic 52–81; PULSE 77–103; RESP 18; O2SAT 91–97
[2024-10-14 01:43] LABS: Appearance Urine UA CLEAR; Bilirubin Urine UA NEGATIVE (NEGATIVE); Color Urine UA YELLOW; Glucose Urine UA NEGATIVE (Negative); Ketones Urine UA NEGATIVE (NEGATIVE); Leukocyte Esterase Urine UA 1+ (NEGATIVE); Nitrite Urine UA NEGATIVE (Negative); Occult Blood Urine UA NEGATIVE (Negative); Protein Urine UA NEGATIVE (Negative); Urobilinogen Urine UA 0.2 E.U./dL (0.2)
[2024-10-14 01:45] LABS: pH Urine UA 5.5 (4.5-8.0)
[2024-10-14 01:47] LABS: UR Morphine/Opiate cutoff 300 Negative (Negative); Ur Creatinine Normal (Normal); Ur Specific Gravity Normal (Normal); Urine Amphetamines Negative (Negative); Urine Barbiturates Negative (Negative); Urine Benzodiazepines Negative (Negative); Urine Cocaine Negative (Negative); Urine MDMA Negative (Negative); Urine Methadone Negative (Negative); Urine Methamphetamines Negative (Negative); Urine Oxycodone Negative (Negative); Urine Phencyclidine Negative (Negative); Urine Tetrahydrocannabinol Negative (Negative); Urine Tricyclic Antidepressant Positive (Negative); Urine pH Normal (Normal)
[2024-10-14 02:01] LABS: Bacteria Urine Occasional (0-1); Culture Indicated Urine Specimen Cultured; RBC Urine None Seen (0-5/HPF); Squamous Epithelial Cell Urine 0-1 /HPF (0-5/HPF); Urine Volume 10mL (spun); WBC Urine 1-5/HPF (0-5/HPF)
[2024-10-14 02:13] LABS: COVID19 -Nasal RAPID Negative (Negative)
[2024-10-14] MEDS: QUETIAPINE 25 MG TABLET PO (03:45)
--- NOTE | 2024-10-14 04:17 | PC.NURSE ---
SURFACING MACHINE OPERATOR NOTE:This Tech observed Patient having out loud conversations with herself. Patient states All of you get out and leave me alone. The patient has had some tearful moments during these conversations. When the patient was asked, Who are you speaking to and who do you see? She said, The man I was in love with and some of my friends. She cried and stated the man she loves is a cheater. The patient continues to talk to the person or persons not there regarding the cheating matter. Patient is in the room alone. She yelled out to the imaginary woman you get out Mrs. Barba'. This Tech held her hand and ensured safety. The provider and RN are notified of this situation.
[2024-10-14] MEDS: QUETIAPINE 25 MG TABLET 50 MG PO ×2 (04:33→22:24)
--- NOTE | 2024-10-14 04:48 | PC.NURSE ---
Pt having difficulty falling asleep. She states that she sees people that are no longer living. Especially her ex- that 15 years ago. Then she starts to state that he was sleeping around. He is a no good filthy man. She was encouraged to keep her eyes closed to try and sleep and to help with avoiding seeing those people.
--- NOTE | 2024-10-14 06:50 | PC.NURSE ---
Pt ambulates with 1 person assist to bathroom. Has intermittent hallucinations of those from her past. Some are already , and she is feeling angry/upset at their presence.
--- NOTE | 2024-10-14 07:30 | PC.NURSE ---
patient woke up and yelled at this HATCHERY ATTENDANT you don't shush me, who do you think you are. This HATCHERY ATTENDANT has had no verbal interaction with patient at that time. Patient then asked Who is outside my room? This HATCHERY ATTENDANT went into patient room and introduced herself, patient then stated You see those people over there in the corner? This HATCHERY ATTENDANT asked Can you point out in the room what corner you see the group of people? patient stated Oh gosh no this again, so what you're telling me is I'm hallucinating again? This hasn't happened in a real long time. Patient then got tearful and stated This is getting harder day by day. I just want to know who is outside my room, those nurses earlier told me that if I see people in my room that I don't want in here to tell them to leave and to get out. This HATCHERY ATTENDANT asked if that was helpful to the patient and she stated Sometimes but its getting harder. Patient then quickly got distracted and asked for water. When this HATCHERY ATTENDANT returned with water patient was then arguing with someone. There is no one in the room.
--- NOTE | 2024-10-14 07:49 | PC.NURSE ---
patient is beginning to become more agitated with the People in the room. Stating Just go, leave my room. I'm sorry I didn't mean to hurt anybody. What do you want? You want me to ? I'm sorry but that is not going to happen, I've got more life to live before I . Patient continues to argue with the People in her room telling them to leave and switch between tearful and angry.
[2024-10-14] MEDS: LORazepam 2 MG/ML INJ 1 MG IV (07:58)
--- NOTE | 2024-10-14 12:19 | PC.NURSE ---
patient is resting with eyes closed, respirations are even, 15 minute monitoring continued
--- NOTE | 2024-10-14 14:11 | PC.NURSE ---
Patient assessment is deferred at this time to allow rest, patient is resting with eyes closed, respirations are even
--- NOTE | 2024-10-14 18:59 | CM.SWNOTE ---
ED PIPE FITTER FIRE SPRINKLER SYSTEMS Assesment Note: PIPE FITTER FIRE SPRINKLER SYSTEMS - Commutator Presser Assessment PIPE FITTER FIRE SPRINKLER SYSTEMS/Commutator Presser Assessment Time Spent with Patient Start date 10/14/24 Visit Start Time 18:00 End date 10/14/24 Visit End Time 18:30 Total time Care Management spent on 30 minutes patient visit-in minutes Mental Health Screening Include Onset, Duration, Intensity Presenting Problem Patient presented to the ED for visual and auditory hallucinations, wrist fracture . It is reported that this is recent behavior (about a month ) and friend/landlord is concerned for patient's safety . Patient presents with hallucinations of her and other people who don't speak. Precipitating Event(s) At the end of July, patient is reported to be increasingly paranoid of riding in vehicles because she of her hallucinations. It is reported that patient utilizes a ride share program on [facility] and at the end of July, patient would call for a ride but refuse to get in the vehicle, Because there is no room due to other passengers. The only other person in the car is the straight truck driver. It is reported that patient has been attempting to cook food in her apartment and has left the burner on many times, burning food. On 09/19/24, patient experienced a fall because she was running away from the people she can see who are not there. This is when patient hurt her wrist. Patient Strengths Patient is supported by a landlord/friend, TARI Plant Sprayer, and [facility] Plant Sprayer. Current Behavioral Health Provider(s) [facility] Include Facility, Provider, Ph. # - Noemí and Be Cabello (ph# [phone]). Psych. Hx Mental Health and Chemical Per patient son, patient has Dependency not had a psychotic episode like this before. Family Hx of Behavioral Abuse Per patient son, patient has a sister who had an unspecified bipolar disorder. Psychiatric Hospitalizations (date(s)/ None reported. location) Psychosocial information & Support Patient is a 79yo female, Systems resident of [facility], who lives in an apartment alone. She is renting a basement unit from a friend. Patient does not have any local family to assist but a son who lives in [place] who is somewhat involved in care. School/Work Patient is not employed. Legal Concerns Legal Matters - Outstanding Issues None reported. Mental Status Orientation (Person/Place/Time) AOx3 Stated Mood ugly Affect (Congruent with Mood?) Congruent with mood, full range, tearful Thought Content - Specify/Describe Hallucinations: In the Obsessions, Delusions, Hallucinations Emergency Department, pt has presented with experiencing these hallucinations. Patient continues to ruminate that her is in the room with her (her has been for 15 years). ED staff observed pt becoming increasingly agitated and yelling in an empty room, asking people to leave her alone. During this PIPE FITTER FIRE SPRINKLER SYSTEMS assessment, pt was having full conversations with these people in the room. Pt explains she knows them as family friends. Pt was cooperative but stated many times during assessment, Is there any way we can get them out of here so I can fully speak with you? Patient states these people have been around her for about 6 weeks and have not left her alone, They don't even let me brush my teeth alone, they have no sense of propriety. Delusions: Patient explains she believes the people she sees are tormenting her because they believe she murdered their loved ones, I thought they were ants near my coffee and I brushed them off and put them in the trash. They were actually tiny people . I would never do such a thing if I knew what they were . Pt denies any command hallucinations. Thought Processes (Kqjpnde-Tnzuhrlx-Ohak Goal directed, coherent Wznrwwqj-Rsxoglhg-Vdptubcseq- Uibfvwxilhirzv-Zknwfrd-Vcfdlhmgjvzi- Thought Blocking) Speech (Atfpvz-Oxce-Kgosdnm-Rapid-Soft- Normal Loud-Pressured) Motor (Nrgbcu-Lssthbbcx-Mwju-Other) Normal Insight (Fufn-Jmse-Qnsj/Limited) Poor Judgement (Ipje-Amoo-Qqhs/Limited) Poor Impulse Control (Adequate-Impaired) Intact Memory (Qcxqhcnvn-Wbewhc-Chgplp, Intact Impaired-Intact) Concentration (Intact-Impaired) Intact Attention (Intact-Impaired) Intact Behavior (Appropriate-Inappropriate) Inappropriate Additional Comment Patient is calm, cooperative and communicative with this clinican although responding to internal stimuli. Risk Assessment Suicidal Ideation (Plan) No Homicidal Ideation (Plan) No Comment Patient denies SI with plan, states there are times in her life when I felt that way but does not have any intention of ending her life. I have some life left and I want to live it. Intervention Intervention Reviewed chart and discussed with ED Provider pt's medical status and discharge needs. It is reported pt is responding to internal stimuli all evening and morning, becoming agitated. Pt is redirectable. ED PIPE FITTER FIRE SPRINKLER SYSTEMS attempts to meet with patient for approximately 5 hours at the top of the hour, pt is too somnolent due to no sleep the previous night and medications for assessment. ED PIPE FITTER FIRE SPRINKLER SYSTEMS meets with patient, pt is found alert and oriented, recently ate a meal independently. Patient endorses being tormented by people who won't leave her alone. During assessment, pt responds to internal stimuli. ED PIPE FITTER FIRE SPRINKLER SYSTEMS and patient discuss goals of care. Patient explains they are agreeable to receive inpatient behavioral health hospitalization at this time. At this time, it is the opinion of this PIPE FITTER FIRE SPRINKLER SYSTEMS that patient would benefit from inpatient psychiatric hospitalization for grave disability and psychosis. PIPE FITTER FIRE SPRINKLER SYSTEMS informs ED provider, Dr. Clifford and Dr. Meehan, who indicates agreement and requesting DCR consult/ dispatch. PIPE FITTER FIRE SPRINKLER SYSTEMS informs VICTORIANO Goode. PIPE FITTER FIRE SPRINKLER SYSTEMS calls [facility] Care Crisis Line and spoke with Bladimir, gave pt information and requesting DCR dispatch and consult. VOA attestation form sent to [facility]. Plan RA Plan Pt is medically cleared, DCR to dispatch and consult for placement. ED staff to coordinate disposition. MARC Mahajan
--- NOTE | 2024-10-14 19:51 | CM.SWNOTE ---
Addendum entered by DARCY Martinez 10/14/24 20:09: JACK Lazo to arrive at 2100, ph# [phone]. MARC Mahajan Original Note: ED SCIENCE WRITER DCP Continued: ED SCIENCE WRITER initiated bed search for inpatient geropsych treatment. SCIENCE WRITER calls [facility], it was reported that there are no beds available. SCIENCE WRITER calls [facility], it was reported that there are no beds available. SCIENCE WRITER calls [facility], it was reported that there are no beds available. Dr. Meehan requesting DCR to be dispatched due to pt acute psychosis. 1900: SCIENCE WRITER sent clinicals to DCR Dispatch fax#[phone]. JACK Lazo calls this SCIENCE WRITER at 1955, stating the documentation from [facility] [place] indicating [place] is not DCR eligible. DCR requesting to speak with Dr. Meehan to consult regarding patient. Plan: DCR dispatch pending for inpatient treatment. CM Team will continue to follow for coordination of discharge plans. MARC Mahajan
--- NOTE | 2024-10-14 20:49 | PC.NURSE ---
SUMMER CHILD CAREGIVER Note: Patient talking with self in the room telling a figment of her imagination stating get out of my room, leave me alone. will continue to monitor.
--- NOTE | 2024-10-14 21:40 | PC.NURSE ---
assessment is deferred at this time, DCR Shaye is at the bedside at this time
[2024-10-14] MEDS: MELATONIN 3 MG TABLET PO (22:24)
[2024-10-14] MEDS: OLANZapine 2.5 MG TABLET 5 MG PO (22:24)
[2024-10-14] MEDS: CELECOXIB 100 MG CAPSULE PO (22:24)
[2024-10-15] VITALS (7 sets, daily range): BP systolic 126–133; BP diastolic 60–81; PULSE 74–98; RESP 19–20; TEMP 36.4–37; O2SAT 93–98; BMI 28.3
[2024-10-15] MEDS: OLANZapine 2.5 MG TABLET 5 MG PO ×2 (08:38→22:33)
[2024-10-15] MEDS: LEVOTHYROXINE 50 MCG TABLET PO (08:38)
[2024-10-15] MEDS: CELECOXIB 100 MG CAPSULE PO ×2 (08:39→22:34)
[2024-10-15] MEDS: ENOXAPARIN 40 MG/0.4 ML SYRINGE SUBCUT (08:39)
--- NOTE | 2024-10-15 10:08 | PC.NURSE ---
Patient has an appointment for a MRI here at [facility] on October 19 and a Eye appointment with Dr. Ritchie on October 27 per the Shaylee (caregiver). Shaylee called to verify if she needed to cancel appointments, this JOB PRESS OPERATOR told her to keep the appointments due to not knowing about any discharge plan yet. This JOB PRESS OPERATOR did let her know if there is an issue with silvia still being here at the hospital that we will be able to cancel the appointments. We can reach Dr. Ritchie's off at [phone] We can reach our MRI scheduling department at ext: [phone]
--- NOTE | 2024-10-15 10:20 | CM.SWNOTE ---
ED ASSEMBLY LINE BRAZER DCP Note: Reviewed chart and discussed with multidisciplinary team pt's medical status and initial discharge needs. Per DCR Shaye Lazo, assessment indicated pt is gravely disabled and would meet JOESPH requirements. DCR unable to detain due to no available geropsych beds. ED ASSEMBLY LINE BRAZER continues bed search on this date: ASSEMBLY LINE BRAZER calls [facility], it was reported that there are no beds available. ASSEMBLY LINE BRAZER calls [facility], it was reported that there are no beds available. Pt is placed on their waitlist. ASSEMBLY LINE BRAZER calls [facility] (only takes JOESPH pts), it was reported that there is a chance a bed will be available. Intake requested this ASSEMBLY LINE BRAZER to call back at around 1300 for availability. #[phone]. Plan: Pending placement for geropsych inpatient treatment vs. social admit due to no safe discharge plan available. MARC Mahajan
--- NOTE | 2024-10-15 12:34 | PC.NURSE ---
I talked to Shaylee who patient was previously living with prior to this ER visit. She requests to be updated so she can help by providing clothes/suit case for where patient ends up getting transferred to. Shaylee mentions 2x appointments that patient has scheduled next week for the forestry worker and MRI. At this time I told Shaylee not to cancel these appointments until there is a more definitive answer as to where patient will be transferred. See previous note from Cara VERONICA regarding appointment dates/times.
--- NOTE | 2024-10-15 17:44 | CM.IDA ---
Addendum entered by Laney Maguire 10/15/24 18:24: *correction: current MRI scheduled for 10/19/24. Original Note: Initial DCP Assessment/ ED WET MACHINE OPERATOR Note Patient is 79 y/o female who has been boarding in the ED for 46+ hours due to concern for patient's wrist fracture, grave disability, acute psychosis, paranoia and hallucinations. Patient has had recent GLFs. Patient has been evaluated by DCR yesterday and it was determined that patient met criteria for JOESPH due to grave disability but there were not any geripsych beds available yesterday or today. See Note from earlier today, see WET MACHINE OPERATOR Assessment from yesterday. This WET MACHINE OPERATOR contacted [facility] today regarding geripsych JOESPH bed and it is reported that they are at capacity. Patient's PCP is Dr. Arslan Felton, patient has Medicare insurance. Patient does not have DPOA. Patient has hx of Depression, Anxiety, GERD, Non-insulin dependent diabetes and Dyslipidemia. DCR has conversation with PCP and suspects dx of Lewy Body Dementia and patient has not been taking previously prescribed rx for patient's Anxiety and Depression. Patient also endorses hx of Cataracts and Muscular Degeneration. WET MACHINE OPERATOR enters room to meet with patient, patient presents as A/Ox4, anxious, tearful at times, tangential, disorganized at times. Patient presents with response to internal stimuli. Patient states she is seeing a room full of people. Patient endorses that she saw her spouse, family members that have and other people that ambika and harass me. Patient presents with paranoia and concern that someone is filming her in the ED, patient continues to have conversations with herself alone in the room. Patient states that her PCP informed her that she was having hallucinations and patient has to ask if what she is seeing is real or not. Patient states she thought she saw tiny ants on the counter in the sugar and coffee and states that she was seeing tiny people. Patient states I don't understand why I think this. Patient endorses that she was residing with her friends Lisa and Tristen in [facility] and stayed with them in their refurbished basement. It is reported that Lisa does not want patient to return. it is reported that patient left the stove on while cooking and Lisa is concerned for patient's safety at home as they cannot supervise her at all times. Patient endorses concern about returning to Lisa and Tristen's home because of paranoia, patient endorses that she believes Lisa is out to get her and communicating with the hallucinations she sees. There is current APS case with [facility] (Ph. # [phone]), WET MACHINE OPERATOR calls Angie and leaves VM. Patient states that she was living in [place] and moved in with Lisa and Tristen in June. Patient endorses independence with ADLs, patient states she does not drive due to her Cataracts and muscular degeneration, patient states she relies on friends with others. Patient endorses that she ambulates without DME. WET MACHINE OPERATOR calls [facility] regarding consult and leaves VM. Dr. Lucero calls back and reports that he and Dr. Gaspar are unable to see patient today but to reach out to Dr. Villalpando on Friday for further consultation. Patient states that her sons Levi and Bogdan Anderson reside in [place], [place]. Patient denies any local supports other than her friends Lisa and Tristen. Patient has had involvement with [facility] team on [facility]. WET MACHINE OPERATOR fills out Medicaid LTC & ABD application as well as [facility] application for patient and faxes it to [facility] for review. Patient has MRI appt for 10/17/24 due to concern for patient's hallucinations, patient would benefit from expedited MRI if possible. It is the opinion of this WET MACHINE OPERATOR that patient is not safe to d/c at this time as patient does not have a safe place to d/c to, patient continues to present with active paranoia and hallucinations and patient is a candidate for JOESPH geripsych placement if there is bed availability. Plan: Patient to be admitted under social admission guidelines, DCP to f/u with Geripsych facilities for potential placement and re-dispatch DCR. Pending LTC Medicaid application in process. Psychiatry consult in place for Friday. APS involved with open case at this time. MARC Nichole Discharge Planning/Care Management CM Discharge Assessment Start: 10/15/24 16:18 Freq: Status: Active Protocol: Document 10/15/24 16:18 LN (Rec: 10/15/24 16:28 LN [id number]) Discharge Planning Assessment Assigned Teacher Associate MARC Davison Advance Directives? No Advance Directives on File No History Provided By Patient,Medical Record Has Patient been admitted in last 30 No days? Prior Living Arrangements Homeless Comment Patient was living with friends in their basement, but they have asked that she not return. Comment Previously resided with friends on [facility]. Type of transporation used prior to Relies on Others admit Independent with ADL's Yes Is patient alert and oriented? Yes Barriers to Discharge Yes Comment Patient would benefit from Psych consult, It is reported that Dr. Villalpando can see her Friday. Patient does not have residence to return to at this time. Referrals Initiated Medicaid Application Additional Comment WET MACHINE OPERATOR completing [facility] application and LTC Medicaid Application.
[2024-10-15] MEDS: LORazepam 0.5 MG TABLET PO (18:41)
[2024-10-15] MEDS: HEPARIN 5,000 UNIT/ML VIAL 5000 UNIT SUBCUT (21:45)
[2024-10-15] MEDS: MELATONIN 3 MG TABLET PO (22:33)
[2024-10-15] MEDS: QUETIAPINE 25 MG TABLET 50 MG PO (22:33)
--- NOTE | 2024-10-15 23:21 | PC.NURSE ---
LATE NOTE, DURING ADMIT PATIENT WAS SEEING AND HEARING SOMEONE TALK WITH HER AND SHE WAS ANSWERING QUESTIONS THAT THIS PERSON WAS ASKING HER. SHE WAS ABLE TO REMEMBER THE MEDICATIONS SHE WAS ON,BUT NOT WHEN SHE TOOK LAST.
[2024-10-16 00:03] VITALS: BP 140/74; PULSE 85; RESP 18; TEMP 37; O2SAT 96
[2024-10-16 04:00] VITALS: BP 133/74; PULSE 76; RESP 19; TEMP 36.9; O2SAT 94
--- NOTE | 2024-10-16 04:16 | PC.NURSE ---
shift foreman patient removed her IV, patient appears to be AOx4 but is having constant audio and visual hallucinations, with graphic details of family members performing sexual acts and using explicit language towards the patient, the Patients is having difficulty with describing coherent hallucinations; has random word salads and will go into tangents of non coherent speech. updated and gave verbal order to leave out IV.
--- NOTE | 2024-10-16 06:37 | PM.HP.1 ---
History of Present Illness History of Present Illness Chief complaint: mental health eval Narrative: 79-year-old female with past medical history of hyperlipidemia, GERD, iuz-vumwehb-nsvjnqnee diabetes who was brought into ER due to auditory hallucination. Of note the patient over the last few months has been having recurrent psychosis. The patient was reported to be having hallucination and was running away from people that were chasing her. With her recent fall on September 22, 2024 the patient landed on her left arm and continue to have left arm/wrist pain. Of note the patient lives on [address] and was noted to have increased agitation and hallucination for the last few months. The patient reports that she is still sees her who had past away 5 years ago. Of note the patient also might have underlying dementia per the report. The patient has been admitted to our ER for the last 48 hours. [facility] was consulted but there is no bed available at this time to accept the patient. The patient is medically stable without any significant lab abnormality or infection. Vital signs are also stable. Due to ongoing agitation and hallucination our ER physician have to give her Seroquel as well as Haldol to keep the patient calm and awaits for a geripsych bed to open up. Due to our hospital policy the patient cannot be in the ER for more than 48 hours awaiting a mental health bed. A request to admit the patient to our medical service while awaiting for a [facility] bed to opens up. [facility] Medical History (Updated 10/14/24 @ 02:37 by Tiffanie Meehan MD) GERD (gastroesophageal reflux disease) Non-insulin dependent diabetes mellitus Dyslipidemia Surgical History (Updated 12/31/19 @ 15:39 by Sarah Beth Tristan DO) History of knee replacement H/O: hysterectomy Social History (Updated 12/31/19 @ 15:39 by Sarah Beth Tristan DO) details: Lives alone independently on [facility] household members: none Smoking Status: Never smoker alcohol intake: current Meds Home Medications and Allergies Home Medications Medication Instructions Recorded Confirmed Type atorvastatin 20 mg tablet 20 mg PO DAILY 10/15/24 10/15/24 History celecoxib 100 mg capsule 100 mg PO DAILY 10/15/24 10/15/24 History cyclobenzaprine 10 mg tablet 10 mg PO 3XD 10/15/24 10/15/24 History levothyroxine 50 mcg tablet 50 mcg PO DAILY 10/15/24 10/15/24 History quetiapine 50 mg tablet 50 mg PO DAILY 10/15/24 10/15/24 History Allergies Allergy/AdvReac Type Severity Reaction Status Date / Time acetaminophen [From Vicodin] Allergy Severe Hives Verified 10/13/24 22:22 hydrocodone [From Vicodin] Allergy Severe Hives Verified 10/13/24 22:22 morphine Allergy Severe Hallucinati Verified 10/13/24 22:22 ng Review of Systems Review of Systems Narrative: Limimted as patient was still confused and has psychosis. Exam Vital Signs (past 8 hours): - 10/16/24 00:03 10/16/24 04:00 Temperature 98.6 F 98.4 F Pulse Rate 85 76 Respiratory Rate 18 19 Blood Pressure 140/74 133/74 Pulse Oximetry 96 94 Oxygen Flow Rate 0 0 Oxygen Delivery Method Room Air Oxygen Flow Rate 0 Narrative Exam Narrative: Physical Exam: GENERAL: The patient is not in any acute distressed. Awake and alert. HEENT: Nonicteric sclerae, PERRLA, EOMI. Oropharynx clear. Moist mucous membranes. Conjunctivae appear well perfused. HEART: Regular rate and rhythm without murmurs. No lower extremities edema. LUNGS: Clear to auscultation bilaterally. No wheezing, crackles or rhonchi ABDOMEN: Soft, positive bowel sounds, nontender. SKIN: No rash, no excessive bruising, petechiae, or purpura. NEUROLOGIC: AxO x 3. Cranial nerves II-XII intact without motor/sensory deficit. Objective Labs 10/13/24 21:34 10/13/24 21:34 Assessment & Plan Assessment & Plan narrative: Psychosis with ongoing auditory and visual hallucination. Admit the patient to medical observation. Continue to monitor the patient closely with as needed Haldol. Resume home psychiatric medication. Again patient is awaiting to be placed in [facility] once a bed opens up (and per our hospital policy patient should be admitted to the floor if the patient is still in our ER after 48 hours awaiting to transfer to a mental health facility). Gjv-dhewxjb-ozudaahhk diabetes. No glucose in the 200s. Subcu insulin and monitor glucose. Recent fall with fracture of left wrist. PT/OT and pain control. Hyperlipidemia. resume home statin. GERD. PPI. DVT prophylaxis SCDs due to observational status. CODE STATUS DNR/DNI Disposition likely to [facility] facility in 1 to 2 days. Time-Based Coding :: [TOTAL MINUTES] spent with patient and on the chart (including review of chart, obtaining history, exam, reviewing outside data, placing orders, documenting exam and treatment plan, and counseling patient) on [DATE]. Quality VTE Deep Vein Thrombosis/Pulmonary Embolism Present on Admission: No
[2024-10-16 06:42] LABS: Add Manual Diff / Slide Review NO; Basophils Absolute Auto 100 /uL (0-100); Basophils Percent Auto 1.4 % (0-2); Eosinophils Absolute Auto 200 /uL (0-450); Eosinophils Percent Auto 2.4 % (2-4); Hematocrit 41.9 % (36-46); Hemoglobin 14.2 g/dL (12.0-16.0); Lymphocytes Absolute Auto 2700 /uL (1100-4500); Lymphocytes Percent Auto 36.2 % (25-40); Mean Corpuscular HGB Conc 33.8 % (30-36); Mean Corpuscular Hemoglobin 29.8 PG (26-34); Mean Corpuscular Volume 88.1 fL (80-100); Monocytes Absolute Auto 600 /uL (0-900); Monocytes Percent Auto 7.9 % (3-14); Neutrophils Absolute Auto 4000 /uL (1500-7000); Neutrophils Percent Auto 52.1 % (50-75); Platelet Count 177 X10^3/uL (150-400); Red Blood Cell Count 4.75 X10^6/uL (4.0-5.2); Red Cell Distribution Width 12.8 % (11.6-14.8); White Blood Cell Count 7.6 X10^3/uL (4.5-11.0)
[2024-10-16 06:55] LABS: BUN Creatinine Ratio 18.8 (6-22); Blood Urea Nitrogen 16 mg/dL (7-17); Calcium 9.7 mg/dL (8.4-10.2); Carbon Dioxide 22 mmol/L (22-32); Chloride 106 mmol/L (98-107); Estimated Glomerular Filt Rate > 60 mL/min (>60); Glucose 137 mg/dL (80-110); HEMOLYSIS < 15 (0-50); Potassium 4.3 mmol/L (3.4-5.1); Sodium 138 mmol/L (137-145)
[2024-10-16 08:00] VITALS: BP 138/82; PULSE 85; RESP 15; TEMP 36.4; O2SAT 95
[2024-10-16] MEDS: CELECOXIB 100 MG CAPSULE PO (09:14)
[2024-10-16] MEDS: OLANZapine 2.5 MG TABLET 5 MG PO ×2 (09:14→19:34)
[2024-10-16] MEDS: ATORVASTATIN 20 MG TABLET PO (09:14)
[2024-10-16] MEDS: HEPARIN 5,000 UNIT/ML VIAL 5000 UNIT SUBCUT ×2 (09:14→19:35)
--- NOTE | 2024-10-16 12:13 | PC.NURSE ---
Day shift: This sanitation truck driver helped pt to shower, pt wanted to use the br beforehand. Due to a fall risk this sanitation truck driver had door cracked until pt sat down, pt shut the door and then starting saying get out of the bathroom. pt showered self independently and when this sanitation truck driver knocked on door to check in pt stated I'm good, leave me alone. pt was asked to let sanitation truck driver know when done with shower. pt let sanitation truck driver know, sanitation truck driver helped pt dry off and pt stated, You didn't have play me like that, I can write you up If I want. Imagine if you were me. Imagine having a man check your body, It is humiliating. Flat Spring Assembler apologized for making pt uncomfortable and explained the safety reasons behind keeping the door cracked until pt sat down.
--- NOTE | 2024-10-16 17:14 | P.PN_ITS ---
Subjective Subjective Interval history: 79 F admitted for auditory and visual hallucinations over the past 6 weeks. She was admitted from the ER for melchor-psych placement with inability to find a bed after 48 hours according to the ER provider. Psychiatry consultation at [facility] is not currently available. patient was started on zyprexa in the ER and seroquel. She reports no current hallucinations, but does have some paranoid ideologies and is afraid to discuss specifics at this time regarding an event that she claims happened. Her hand is in no pain at this time. Exam Vital Signs (past 8 hours): Oxygen Delivery Method Room Air Oxygen Flow Rate 0 Narrative Exam Narrative: Gen: NAD CV: RRR no m/r/g Pulm: CTA B/l Abd: S NT ND Ext: No edema, R wrist bandaged. Psych: denies current hallucination, but slight paranoia expressed and avoidant. Objective Labs 10/16/24 06:35 10/16/24 06:35 Labs: Laboratory Results - last 24 hr 10/16/24 06:35 WBC 7.6 RBC 4.75 Hgb 14.2 Hct 41.9 MCV 88.1 MCH 29.8 MCHC 33.8 RDW 12.8 Plt Count 177 Neut % (Auto) 52.1 Lymph % (Auto) 36.2 [place] % (Auto) 7.9 Eos % (Auto) 2.4 Baso % (Auto) 1.4 Neut # (Auto) 4000 Lymph # (Auto) 2700 [place] # (Auto) 600 Eos # (Auto) 200 Baso # (Auto) 100 Sodium 138 Potassium 4.3 Chloride 106 Carbon Dioxide 22 BUN 16 Creatinine 0.85 Estimated GFR > 60 BUN/Creatinine Ratio 18.8 Glucose 137 H Calcium 9.7 PFSH Medical History (Updated 10/14/24 @ 02:37 by Tiffanie Meehan MD) GERD (gastroesophageal reflux disease) Non-insulin dependent diabetes mellitus Dyslipidemia Surgical History (Updated 12/31/19 @ 15:39 by Sarah Beth Tristan DO) History of knee replacement H/O: hysterectomy Social History (Updated 12/31/19 @ 15:39 by Sarah Beth Tristan DO) details: Lives alone independently on [facility] household members: none Smoking Status: Never smoker alcohol intake: current Assessment & Plan Assessment & Plan narrative: Psychosis with ongoing auditory and visual hallucination. - continue home seroquel and zyprexa 5 mg BID - unclear if this is related to depression with psychosis, other psychiatric illness - infectious and metabolic etiologies have been ruled out. - discuss with Dr. Villalpando of psychiatry for medication recommendations on Friday when back in the hospital Auf-zpxdrwj-cxgqeibcv diabetes. - normal glucose on BMP - given psychosis will not check glucose while admitted. Recent fall with fracture of left wrist. Distal radial and ulnar styloid fractures. - Splint placed in the ER - outpatient ortho follow up Hyperlipidemia. resume home statin. GERD. PPI. DVT prophylaxis SCDs due to observational status. CODE STATUS DNR/DNI Disposition likely to [facility] in 1 to 2 days. Time-Based Coding :: [TOTAL MINUTES] spent with patient and on the chart (including review of chart, obtaining history, exam, reviewing outside data, placing orders, documenting exam and treatment plan, and counseling patient) on [DATE]. Quality VTE Deep Vein Thrombosis/Pulmonary Embolism Present on Admission: No
[2024-10-16] MEDS: MELATONIN 3 MG TABLET PO (19:34)
[2024-10-16 20:00] VITALS: BP 151/79; PULSE 107; RESP 20; TEMP 36.6; O2SAT 91
[2024-10-16] MEDS: QUETIAPINE 25 MG TABLET 50 MG PO (20:03)
[2024-10-16] MEDS: QUETIAPINE 25 MG TABLET 100 MG PO (21:34)
[2024-10-17] MEDS: OLANZapine 10 MG VIAL IM (00:02)
--- NOTE | 2024-10-17 00:07 | PC.NURSE ---
Addendum entered by Annette Joiner R.N. 10/17/24 04:22: Assisted patient to bathroom with x2 person assist, gait belt & FWW due to weakness. Patient cursing at staff members, swinging arms at times. Patient pushes staff members when holding onto gait belt. Explained to patient that we need to assist to prevent falls, patient stated it's none of your business if I fall. Called coordinator for assistance, was able to redirect patient back to bed. Fall precautions in place. Original Note: warehouse worker 2nd shift: Patient is alert to voice. Accurately states name, birthday, unsure of situation & place. Reports chronic back pain although declines pain medication. Patient is hallucinating and talking/arguing alone in the room, will often ask to go home. When staff tries to redirect, patient becomes increasingly agitated. Patient asked this RN to give her back her sweater, this RN expressed that the patient was wearing a sweater and nothing was being taken from her. Patient grabbed this RN's shirt and shouted you're lying to me. Patient then got out of bed and started to pace the room. Staff remained in the room as patient is a fall-risk. Updated MD Pandey of patient behavior, medicated as ordered. Patient currently resting in bed.
[2024-10-17 00:53] VITALS: PULSE 97; O2SAT 94
[2024-10-17 01:08] VITALS: O2SAT 91
[2024-10-17] MEDS: ATORVASTATIN 20 MG TABLET PO (08:49)
[2024-10-17] MEDS: CYCLOBENZAPRINE 10 MG TABLET PO ×3 (08:49→22:37)
[2024-10-17] MEDS: HEPARIN 5,000 UNIT/ML VIAL 5000 UNIT SUBCUT (08:49)
[2024-10-17] MEDS: CELECOXIB 100 MG CAPSULE PO (08:49)
[2024-10-17] MEDS: OLANZapine 2.5 MG TABLET 5 MG PO ×2 (08:49→17:44)
--- NOTE | 2024-10-17 09:09 | PC.NURSE ---
Upon entering Patient's room she was observed talking to someone who was not present. The patient was also attempting to remove her bandage, this X Ray Equipment Tester approach her to inform the importance of keeping the bandage on, she became agitated and stated that it was not my business and I can't tell her what to do and that she can do anything she wants. Encouraged patient to keep bandage on and provide reassurance as appropriate.
--- NOTE | 2024-10-17 10:15 | P.PN_ITS ---
Subjective Subjective Interval history: 79 F admitted for auditory and visual hallucinations over the past 6 weeks. She was admitted from the ER for melchor-psych placement with inability to find a bed after 48 hours according to the ER provider. Psychiatry consultation at [facility] is not currently available. patient was started on zyprexa in the ER and seroquel. She reports no current hallucinations, but does have some paranoid ideologies and is afraid to discuss specifics at this time regarding an event that she claims happened. Her hand is in no pain at this time. Exam Vital Signs (past 8 hours): Oxygen Delivery Method Room Air Oxygen Flow Rate 0 Narrative Exam Narrative: Gen: NAD Ext: No edema, R wrist bandaged. Objective Labs 10/16/24 06:35 10/16/24 06:35 [facility] Medical History (Updated 10/14/24 @ 02:37 by Tiffanie Meehan MD) GERD (gastroesophageal reflux disease) Non-insulin dependent diabetes mellitus Dyslipidemia Surgical History (Updated 12/31/19 @ 15:39 by Sarah Beth Tristan DO) History of knee replacement H/O: hysterectomy Social History (Updated 12/31/19 @ 15:39 by Sarah Beth Tristan DO) details: Lives alone independently on [facility] household members: none Smoking Status: Never smoker alcohol intake: current Assessment & Plan Assessment & Plan narrative: Psychosis with ongoing auditory and visual hallucination. - continue home seroquel and zyprexa 5 mg BID - unclear if this is related to depression with psychosis, other psychiatric illness - infectious and metabolic etiologies have been ruled out. - discuss with Dr. Villalpando of psychiatry for medication recommendations on Friday when back in the hospital Uni-kaqvycz-dsnyzjfci diabetes. - normal glucose on BMP - given psychosis will not check glucose while admitted. Recent fall with fracture of left wrist. Distal radial and ulnar styloid fractures. - Splint placed in the ER - outpatient ortho follow up Hyperlipidemia. resume home statin. GERD. PPI. DVT prophylaxis SCDs due to observational status. CODE STATUS DNR/DNI Disposition likely to [facility], unclear timing depending on availability of days Time-Based Coding :: [TOTAL MINUTES] spent with patient and on the chart (including review of chart, obtaining history, exam, reviewing outside data, placing orders, documenting exam and treatment plan, and counseling patient) on [DATE]. Quality VTE Deep Vein Thrombosis/Pulmonary Embolism Present on Admission: No
--- NOTE | 2024-10-17 11:43 | CM.DPNOTE ---
Addendum entered by DARCY Berman 10/17/24 16:41: Per Heidi at [facility], cannot accept tonight. maybe tomorrow. REGIONAL DIRECTOR OF ADMISSIONS updated RN/provider. P: send referrals to [facility]/ [facility] tomorrow if bed availability/[facility] cannot accept. contact DCR for new hold as needed. updated APS CM Angie Forrest (Ph. # [phone]) and sons/friend. will continue to follow close SL Addendum entered by DARCY Berman 10/17/24 12:03: per Heidi at [facility], issues with fax. emailed referral to [email or web address] Original Note: DCP note REGIONAL DIRECTOR OF ADMISSIONS reviewed EMR Per provider, medically cleared to dc if geripsych placement found. Pt seen by this REGIONAL DIRECTOR OF ADMISSIONS talking to hallucination in room. REGIONAL DIRECTOR OF ADMISSIONS called following geripsych inpt facilities: Located [facility] (weekend p [phone]) spoke with Francesca, potential bed tomorrow [facility] spoke with intake, p [phone], also potential bed tomorrow [facility], spoke with Heidi (p [phone] f [phone]) have female bed availability. REGIONAL DIRECTOR OF ADMISSIONS answered questions to best of ability. REGIONAL DIRECTOR OF ADMISSIONS faxed FS/H&P/labs/med list/few days of RN&REGIONAL DIRECTOR OF ADMISSIONS notes/pervious DCR paperwork for review (previously JOESPH for grossly disabled). gave Heidi PASTRANA Main station number for contacting RN. REGIONAL DIRECTOR OF ADMISSIONS gave VICTORIANO Marroquin warning that [facility] may be reaching out. Another option is [facility] (p [phone] or p [phone]), will attempt if [facility] denies ref. P: CM team will continue to follow closely for DCP coordination. likely need to call DCR again for hold. DARCY Berman
[2024-10-17 11:44] VITALS: BP 126/78; PULSE 105; RESP 20; TEMP 36.5; O2SAT 93
[2024-10-17] MEDS: QUETIAPINE 25 MG TABLET 50 MG PO (20:04)
[2024-10-17] MEDS: MELATONIN 3 MG TABLET PO (20:04)
[2024-10-17] MEDS: OLANZapine 2.5 MG TABLET 10 MG PO (20:05)
[2024-10-17 20:18] VITALS: BP 136/74; PULSE 76; RESP 18; TEMP 36.6; O2SAT 97
--- NOTE | 2024-10-18 06:45 | PC.NURSE ---
Patient had a PCT all night for continous observation. Pt alert to herself and conversing with this nurse at times about different subject such as her past and one point she was talking to a black cat in the room. She was in and out of bed multiple times, Yelling at the staff and saying you are being too pushy pt conversations not coherent and when this nurse tries to reorient patient she gets upset. Pt c/o left arm pain and trying to remove her soft cast. Pt did get a dose of muscle relaxer tonight. pt slept on and off. Pt does better when the door is close and there is less stimulation.
[2024-10-18 08:00] VITALS: BP 106/63; PULSE 81; PULSE 82; RESP 17; RESP 18; TEMP 36.2; TEMP 36.6; O2SAT 94
[2024-10-18] MEDS: CELECOXIB 100 MG CAPSULE PO (08:05)
[2024-10-18] MEDS: OLANZapine 2.5 MG TABLET 5 MG PO (08:05)
[2024-10-18] MEDS: CYCLOBENZAPRINE 10 MG TABLET PO (08:05)
[2024-10-18] MEDS: LEVOTHYROXINE 50 MCG TABLET PO (08:05)
[2024-10-18] MEDS: ATORVASTATIN 20 MG TABLET PO (08:05)
[2024-10-18] MEDS: HEPARIN 5,000 UNIT/ML VIAL 5000 UNIT SUBCUT ×2 (08:06→20:01)
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
--- NOTE | 2024-10-18 14:14 | PM.PN.1 ---
Subjective Subjective Interval history: 79 F admitted for auditory and visual hallucinations over the past [address] Villalpando today, no recommendation for medication changes at this time. She continues to hallucinate occasionally while here in the hospital. She denied any while speaking to Dr. Villalpando. Exam Vital Signs (past 8 hours): - 10/18/24 08:00 10/18/24 08:00 Temperature 97.8 F 97.2 F L Pulse Rate 82 81 Respiratory Rate 18 17 Blood Pressure 106/63 106/63 Pulse Oximetry 94 94 Oxygen Flow Rate 0 Oxygen Delivery Method Room Air Oxygen Flow Rate 0 Narrative Exam Narrative: Gen: NAD Ext: No edema, R wrist bandaged. Objective Labs 10/16/24 06:35 10/16/24 06:35 COUNTS INCLUDE 234 BEDS AT THE [facility] Medical History (Updated 10/14/24 @ 02:37 by Tiffanie Meehan MD) GERD (gastroesophageal reflux disease) Non-insulin dependent diabetes mellitus Dyslipidemia Surgical History (Updated 12/31/19 @ 15:39 by Sarah Beth Tristan DO) History of knee replacement H/O: hysterectomy Social History (Updated 12/31/19 @ 15:39 by Sarah Beth Tristan DO) details: Lives alone independently on [facility] household members: none Smoking Status: Never smoker alcohol intake: current Assessment & Plan Assessment & Plan narrative: 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 - continue home seroquel, increased zyprexa yesterday to 5 mg daily and 10 mg at night. - unclear if this is related to depression with psychosis, other psychiatric illness, or dementia - infectious and metabolic etiologies have been ruled out. - discussed with Dr. Villalpando today, no acute medication changes recommended. [id number] diabetes. - normal glucose on BMP - given psychosis will not check glucose while admitted. Recent fall with fracture of left wrist. Distal radial and ulnar styloid fractures. - Splint placed in the ER - outpatient ortho follow up Hyperlipidemia. resume home statin. GERD. PPI. DVT prophylaxis SCDs due to observational status. CODE STATUS DNR/DNI Disposition likely to [facility], unclear timing depending on availability of beds Time-Based Coding :: [TOTAL MINUTES] spent with patient and on the chart (including review of chart, obtaining history, exam, reviewing outside data, placing orders, documenting exam and treatment plan, and counseling patient) on [DATE]. Quality VTE Deep Vein Thrombosis/Pulmonary Embolism Present on Admission: No
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
[2024-10-18] MEDS: MELATONIN 3 MG TABLET PO (20:01)
[2024-10-18] MEDS: QUETIAPINE 25 MG TABLET 50 MG PO (20:01)
[2024-10-18] MEDS: OLANZapine 2.5 MG TABLET 10 MG PO (20:01)
--- NOTE | 2024-10-18 21:14 | PC.NURSE ---
Addendum entered by Celine Monge R.N. 10/19/24 06:32: pt combative with staff this morning, removing her soft cast and trying to hit staff at the same time. pt received another 5 mg of haldol IM. Addendum entered by Celine Monge R.N. 10/19/24 00:04: pt came out of the room looking for her phone, was at the nursing station looking in the trash can. pt trying to run down the hallway. Multiple nursing staff tried to stop patient. Pt trying to grab the PCT pockets (this PCT is actually ), looking for her phone. Pt was escorted back to the room and was given 5 mg of Haldol IM which she let this nurse administered without any problems. Pt in bed now, bed alarm in place, still needing 1:1 observation. iron pourer MD aware of the situation. Addendum entered by Celine Monge R.N. 10/18/24 22:04: pt yelling at the staff again and door to her room is closer, pt will not let any one in the room at the moment. Original Note: Pt just had an episode where she started yelling at the staff, slamming the door in her room and not letting this nurse come in the room. At the moment pt not cooperating with the pct and or the nurse. She keeps yelling You guys are constantly watching me, don't come in the room please, leave me alone. Pt currently with another PCT Corazon and appears to be more calm.
[2024-10-18] MEDS: HALOPERIDOL 5 MG/ML VIAL IM (23:06)
[2024-10-19] MEDS: HALOPERIDOL 5 MG/ML VIAL IM ×4 (05:53→19:36)
[2024-10-19] MEDS: LEVOTHYROXINE 50 MCG TABLET PO (07:36)
[2024-10-19] MEDS: HEPARIN 5,000 UNIT/ML VIAL 5000 UNIT SUBCUT ×2 (08:16→20:11)
[2024-10-19] MEDS: CELECOXIB 100 MG CAPSULE PO (08:16)
[2024-10-19] MEDS: OLANZapine 2.5 MG TABLET 5 MG PO ×2 (08:16→13:38)
[2024-10-19] MEDS: ATORVASTATIN 20 MG TABLET PO (08:16)
[2024-10-19] MEDS: CYCLOBENZAPRINE 10 MG TABLET PO ×3 (08:16→20:10)
--- NOTE | 2024-10-19 09:31 | PM.PN.1 ---
Subjective Subjective Interval history: 79 F admitted for auditory and visual hallucinations over the past 6 weeks. Overnight agitated, states she just wanted to sleep, called it another break and she is better this morning. She also states an unspecified distant relative was outside her room that she used to live with overnight, she was yelling at her and she was getting agitated that the person was not responding to her. She states she has very poor vision as well, has a very strong prescription but never got glasses in [place]. She has many cataracts and possible macular degeneration. She does think that when she sees her relatives they are a bit more clear in her mind than what she usually sees. Exam Vital Signs (past 8 hours): Oxygen Delivery Method Room Air Oxygen Flow Rate 0 Narrative Exam Narrative: Gen: NAD Ext: No edema, R wrist bandaged. Vision: With snellen eye chart: Both eyes: 20/200 R eye: <20/200 L eye 20/200 Objective Labs 10/16/24 06:35 10/16/24 06:35 [facility] Medical History (Updated 10/18/24 @ 16:18 by Be Villalpando MD) GERD (gastroesophageal reflux disease) Non-insulin dependent diabetes mellitus Dyslipidemia Surgical History (Updated 12/31/19 @ 15:39 by Sarah Beth Tristan DO) History of knee replacement H/O: hysterectomy Social History (Updated 12/31/19 @ 15:39 by Sarah Beth Tristan DO) details: Lives alone independently on [facility] household members: none Smoking Status: Never smoker alcohol intake: current Assessment & Plan Assessment & Plan narrative: 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 - continue home seroquel, increased zyprexa yesterday to 5 mg daily and 10 mg at night. - unclear if this is related to depression with psychosis, other psychiatric illness, or dementia. Her very poor vision (about 20/200) is also a confounding factor in evaluation. - infectious and metabolic etiologies have been ruled out. - discussed with Dr. Villalpando, no acute changes recommended at this time. - with agitation last night again, patient would like to sleep a bit better. Will trial increasing seroquel to 100 mg at bedtime instead of 50 mg. - added prn haldol for agitation. Mlc-fmxeidp-fwfqnduek diabetes. - normal glucose on BMP - given psychosis will not check glucose while admitted. Recent fall with fracture of left wrist. Distal radial and ulnar styloid fractures. - Splint placed in the ER - outpatient ortho follow up Hyperlipidemia. resume home statin. GERD. PPI. DVT prophylaxis SCDs due to observational status. CODE STATUS DNR/DNI Disposition likely to [facility] facility, unclear timing depending on availability of beds Time-Based Coding :: [TOTAL MINUTES] spent with patient and on the chart (including review of chart, obtaining history, exam, reviewing outside data, placing orders, documenting exam and treatment plan, and counseling patient) on [DATE]. Quality VTE Deep Vein Thrombosis/Pulmonary Embolism Present on Admission: No
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
[2024-10-19] MEDS: hydrOXYzine 50 MG/ML INJ 25 MG IM (13:39)
[2024-10-19] MEDS: MELATONIN 3 MG TABLET PO (20:10)
[2024-10-19] MEDS: OLANZapine 2.5 MG TABLET 10 MG PO (20:10)
[2024-10-19] MEDS: QUETIAPINE 25 MG TABLET 100 MG PO (20:11)
[2024-10-20 04:42] VITALS: BP 127/76; PULSE 79; RESP 15; TEMP 36.1; O2SAT 94
[2024-10-20] MEDS: LEVOTHYROXINE 50 MCG TABLET PO (05:53)
--- NOTE | 2024-10-20 05:58 | PC.NURSE ---
NOC: At start of shift, pt expressing concern about friend March visiting from [place] not being allowed to visit and being kept behind a moveable wall; informed pt that this RN would inform lockstitch front edge tape sewer to keep an eye out for March and to let him visit should he arrive. Pt perseverated on this topic; was able to redirect pt with repeated assurances. Care continues.
--- NOTE | 2024-10-20 07:17 | PM.PN.1 ---
Subjective Subjective Interval history: S: She was doing well and has no complaints. She confirms a do not resuscitate status. This will be changed and orders. Exam Vital Signs (past 8 hours): - 10/20/24 04:42 Temperature 96.9 F L Pulse Rate 79 Respiratory Rate 15 Blood Pressure 127/76 Pulse Oximetry 94 Oxygen Delivery Method Room Air Oxygen Flow Rate 0 Narrative Exam Narrative: NAD, alert and oriented. Fluent speech. She is oriented to person, place, and year. Lungs are clear, normal rate and effort. Heart is regular, no murmur gallop or rub. Abdomen is soft, non distended. Extremities are free of edema. Objective Labs 10/16/24 06:35 10/16/24 06:35 [facility] Medical History GERD (gastroesophageal reflux disease) Non-insulin dependent diabetes mellitus Dyslipidemia Surgical History History of knee replacement H/O: hysterectomy Social History details: Lives alone independently on [facility] household members: none Smoking Status: Never smoker alcohol intake: current Assessment & Plan Assessment & Plan narrative: 1. 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 POA. - continue home seroquel, increased zyprexa yesterday to 5 mg daily and 10 mg at night. - unclear if this is related to depression with psychosis, other psychiatric illness, or dementia. Her very poor vision (about 20/200) is also a confounding factor in evaluation. - infectious and metabolic etiologies have been ruled out. - discussed with Dr. Villalpando, no acute changes recommended at this time. - with agitation last night again, patient would like to sleep a bit better. Will trial increasing seroquel to 100 mg at bedtime instead of 50 mg. - added prn haldol for agitation. 2. Fka-errocap-glsjmvvpj diabetes. POA. - normal glucose on BMP - given psychosis will not check glucose while admitted. 3. Recent fall with fracture of left wrist. Distal radial and ulnar styloid fractures. POA. - Splint placed in the ER - outpatient ortho follow up 4. Hyperlipidemia. resume home statin. POA. Plan: -continue current therapy and medications. -she will be seen by Dr. Villalpando today. -disposition planning is currently in place. GERD. PPI. DVT prophylaxis SCDs due to observational status. CODE STATUS DNR/DNI Time-Based Coding :: [TOTAL MINUTES] spent with patient and on the chart (including review of chart, obtaining history, exam, reviewing outside data, placing orders, documenting exam and treatment plan, and counseling patient) on [DATE]. Quality VTE Deep Vein Thrombosis/Pulmonary Embolism Present on Admission: No
[2024-10-20] MEDS: HEPARIN 5,000 UNIT/ML VIAL 5000 UNIT SUBCUT ×2 (08:56→20:00)
[2024-10-20] MEDS: ATORVASTATIN 20 MG TABLET PO (08:56)
[2024-10-20] MEDS: OLANZapine 2.5 MG TABLET 10 MG PO ×2 (08:56→20:03)
[2024-10-20] MEDS: CELECOXIB 100 MG CAPSULE PO (08:56)
--- NOTE | 2024-10-20 09:37 | DIET.CONS ---
Dietary Consultation Note Admission Date: 10/15/2024 19:46 Assessment: 79 y F admitted for mental health eval. Nutrition screened for LOS. Pt having ongoing auditory and visual hallucinations. EMR reviewed. Recorded PO intakes all >75% except 2. DFM reviewed for meal composition. No nutrition related interventions needed at this time. Will continue to monitor PO intakes. Ht: 154.94 cm Wt: 68 kg BMI: 28.3 UBW: 63.5 kg, limited wt hx Last BM: 10/17/24 (10/17/24 11:45) MNA: 9 Codey Score: 21 Diet: 10/14/24 Breakfast General (Regular) Diet Diet Modifications: Safety Tray needed?: No Food Texture: Level 7 - Regular Nutrition Percent Meal Consumed 100% 10/19/24 13:45 Percent Meal Consumed 100% 10/19/24 12:40 Percent Meal Consumed 0% 10/18/24 18:00 Percent Meal Consumed 75% 10/18/24 13:00 Labs: RBC 4.75 X10^6/uL (4.0-5.2) 10/16/24 06:35 Hgb 14.2 g/dL (12.0-16.0) 10/16/24 06:35 Hct 41.9 % (36-46) 10/16/24 06:35 Creatinine 0.85 mg/dL (0.52-1.04) 10/16/24 06:35 Electronically Signed by: Milagros Degroot 10/20/24 09:37 Clinical Dietitian [address] [address]
--- NOTE | 2024-10-20 13:59 | CM.DPNOTE ---
Addendum entered by DARCY Cesar 10/20/24 15:01: ADD: DCR Tawanna Friday has been dispatched to assess patient. Clinical packet left for Tawnana, medical clearance form signed by Dr Martinez, left for Tawanna. COVID swab and EKG ordered by Dr Martinez. SW team standing by for next steps. Original Note: DCP Cont Met w/patient throughout the day to discuss planning efforts; patient calm throughout the day, mild paranoia. Patient tells this MATTRESS STUFFER upon entering the room this afternoon that none of them were here until you walked in. Patient with increasing paranoia, suspicion and fear about the people she sees in and out of her room. Patient wants them to leave, patient with some increasing agitation, visit kept brief. In conversation with Tomas at [facility] Geriatric psych unit; P [phone] (alt number P [phone]) F [phone]. Tomas feels patient is a great candidate for their program, however, they can only admit patient if she has been detained. Consulted with Dr Villalpando, bedside RN Bossman and with CM dept Sup Gini; then placed call to DCR LISANDRO Kathleen P [phone], spoke with Elana who took the report and is sending along to dispatch. Meanwhile faxed packet to DCR at F [phone], including this note. Awaiting dispatch and direction from DCR. If patient meets criteria and is detained, [facility] has a bed for patient and staff plan to hold this bed this evening for patient. RUFUS team following closely. DARCY Atwood P [phone]
--- NOTE | 2024-10-20 14:07 | PC.NURSE ---
Addendum entered by Osvaldo Negrete R.N. 10/20/24 17:17: patient states Lara is in my room taking photos and videos of her. Patient is very agitated. She is eating dinner at this time, will cont. with care and offer medication when she is finished. Addendum entered by Osvaldo Negrete R.N. 10/20/24 16:25: patient refused vital signs to be taken. publishing manager and Tawanna at bedside informing patient that she has been excepted to [facility] and will be leaving in the morning. Time of cloth picker is pending. Addendum entered by Osvaldo Negrete R.N. 10/20/24 15:34: [facility] DCR, Tawanna, at bedside with patient for evaluation for possible placement. Addendum entered by Osvaldo Negrete R.N. 10/20/24 15:13: Patient hallucinating that there are bugs and spiders crawling all over her bed and asked this nurse to remove them. Patient states she is going to have to call someone else on her team to take care of this matter. Addendum entered by Osvaldo Negrete R.N. 10/20/24 15:03: patient in bed, talking to the people at her bedside. Patient states family members are talking to her in her room. Addendum entered by Osvaldo Negrete R.N. 10/20/24 14:41: Pt. is out of bathroom, got her resting in bed at this time. Patient's agitation has improved some. Patient is hallucinating several males in the room with this nurse and I. Patient is adamant that there is writing on the floor that she is unable to read. Addendum entered by Osvaldo Negrete R.N. 10/20/24 14:12: An attempt was made by nurse and dietary to get patient out of bathroom to order dinner. Patient declined. Patient is aggitated and yelling in bathroom for people to leave. No one is in the bathroom with patient. Original Note: Assumed patient care at 1300. Patient was resting in bed finishing lunch. Student doctor working with Dr. Villalpando at bedside doing a assessment with patient. Post assessment this nurse offered patient a shower, patient agreeable. Patient is increasingly getting more agitated through shower process. Is upset stating we don't know what privacy is. Explained to patient that we are just standing close by for safety and assistance if needed. Patient slammed door on nurse. Patient has been in the bathroom and declining to come out for 45 minutes.
--- NOTE | 2024-10-20 14:25 | EKG_ITS ---
[place] [id number] [place] [id number] Test Date: 2024-10-20 Pat Name: Lucie Barba Department: [facility] Room: 209 Gender: Female Shift Supervisor: EFE : 1945 Requested By: Order Number: [id number] Reading MD: Kana Martinez Measurements Intervals [place] Rate: 94 P: 49 MI: 166 QRS: 17 QRSD: 68 T: 65 QT: 372 QTc: 465 Interpretive Statements Normal sinus rhythm Possible Anterior infarct , age undetermined Electronically Signed On 10-20-2024 17:35:55 PST by Kana Martinez
--- NOTE | 2024-10-20 15:02 | CM.DPNOTE ---
DCP Cont Additional information received today about patient: Patient now has an assigned HCS worker, Ranjana Bhandari P [phone] [email or web address]. Ranjana has requested clinicals by emailed to her today. Ranjana is holding FridayNovember 01 for patient's CARES assessment; reports patient needs to be 72 hrs w/o Haldol before her CARES assessment. Ranjana does not have a spot available next week. Requested that Ranjana ask her animal hospital office supervisor for the policy on Haldol and other antipsychotics or chemical restraints , timeframe before CARES assessment. This TAPROOM ATTENDANT unfamiliar with this rule. Ranjana will get back to us. Voicemail received from friend Lisa Cuello ([phone]) stating she has spoken with patient's niece Tammie and niece is willing to be POA/DPOA. Trey Cho (p [phone])([place], [place]). Spoke with MAYRA Adams ([phone]) who reports the investigation for suspected financial exploitation (APS report not made by this SW team) is pending. MAYRA has no further involvement at this time with patient's dispo planning. Angie suggests patient assign DPOA and POA on her own if she is considered decisional. If patient is not considered decisional, likely NOK vs guardian process needed. Angie requests an update on patient's dispo once known. Pending determination of [facility]CR and [facility] geropsych. Still to do, placement: Email clinical packet to [facility], Ranjana Bhandari Place call to trey Cho to discuss DPOA/POA, etc and discuss with patient MOCA/SLUMS cog eval (?) Get [facility] Complaint Supervisor information, can CARES assessment be bumped up? CM team following closely. JW
--- NOTE | 2024-10-20 15:24 | CM.DPNOTE ---
Psychiatric Placement Efforts [facility]- p [phone] f [phone]. No voluntary out of county. [facility] p [phone] Bed available this AM, faxed [facility] F [phone], bed filled by [address] P [phone] per En, no beds available currently. [facility], p [phone] f [phone] beds available, reviewing. [facility] p [phone] and f [phone] declined due to dementia suspected [place] ([facility], [facility], and [facility]) declined [facility], (p [phone] or f [phone])declined [facility], (p [phone] or f [phone]) declined [facility] (p [phone] and f [phone]) declined Per intake at [facility] P [phone] need to staff this referral still (p [phone] f [phone]) JW
[2024-10-20 15:34] LABS: COVID19 -Nasal RAPID Negative (Negative)
--- NOTE | 2024-10-20 16:17 | P.PN_ITS ---
Subjective Subjective Date Patient Seen: 10/20/24 Time Patient Seen: 10:30 Interval history: CLINICAL SUMMARY 79-year-old female with a past medical history of hyperlipidemia, GERD, and orn-gggniqy-hbgvwawvr diabetes was admitted to the hospital for visual hallucinations and agitation. CURRENT PSYCHOTROPIC MEDICATIONS * Olanzapine 10 mg po bid * Quetiapine 100 mg po qhs * Haldol PRN for severe agitation. * CHIEF COMPLAINT I feel pretty good today. TODAY * The patient reported that she feels little better noting that she actually slept well last night. * Mood: Generally stable with no complaints regarding depression, feeling sad or down * Sleep: Patient reports that she basically slept through the night last night but we also note was given Haldol last night for agitation. * Anxiety: Denies any anxiety * Psychosis: Reported that she continues to see various visual hallucinations. Sometimes they are characterized as bugs other times as rubber ducks. As we noted previously, she is also seen people and animals of various types. Also speaking to people in her past. * Side Effects: No apparent difficulty with side effects from any of her medications other than sedation. * We attempted to administer the [place] cognitive assessment (MOCA) but the patient became flustered after seeing the materials presented and then expressed suspicion toward the examiner and did not complete the exam. * We also noted that the patient voiced concern about various cognitive changes for some time and can not specify the exact nature or timing of these changes. Exam Vital Signs (past 8 hours): Oxygen Delivery Method Room Air Oxygen Flow Rate 0 Narrative Exam Narrative: MENTAL STATUS EXAM * Appearance: Well-developed and well-nourished female who appears stated age * Grooming: Neatly dressed and adequately groomed * Behavior: Calm and cooperative with the evaluation except for when the patient was asked to complete cognitive testing with the MOCA. * Motor Movement: No abnormal motor movements no evidence of any cogwheeling rigidity or other parkinsonian symptoms * Gait: Normal no shuffling gait * Speech: Normal rate, volume, and asaf * Mood: ?Pretty good.? * Affect: Pleasant, smiling, generally euthymic Congruent with content, normal range and reactivity * Thought Process: Somewhat circumstantial, often referring events in the distant past her prior relationship * Thought Content: Denies suicidal or homicidal ideation, intent, or plan. Occasionally referred to a visual phenomenon that only she can perceive, but for the most part did not responding to internal stimuli * Attention: Attentive to interview * Orientation: Oriented to person, place, time and circumstance for the most part * Memory: Relatively poor for recent memory * Insight: Poor * Judgment: Poor Objective Labs 10/16/24 06:35 10/16/24 06:35 Labs: Laboratory Results - last 24 hr 10/20/24 14:59 SARS-CoV-2 (PCR) Negative [facility] Medical History GERD (gastroesophageal reflux disease) Non-insulin dependent diabetes mellitus Dyslipidemia Surgical History History of knee replacement H/O: hysterectomy Social History details: Lives alone independently on [facility] household members: none Smoking Status: Never smoker alcohol intake: current Assessment & Plan Assessment & Plan narrative: ASSESSMENT A Over the past few days, we have worked to identify and address any potential underlying causes. At this time, there is no evidence of an infectious or metabolic cause for her psychotic symptoms. While mood-related causes were initially considered, as we have gotten to know the patient, our concern has increasingly highlighted a cognitive etiology, with the strongest supporting evidence pointing to probable Lewy Body Disease. The patient has shown pattern changes with her attention and fluctuating cognition, with pronounced variation in attention and alertness. In the morning, she is noticeably more alert and direct in her communication. She is able to elaborate on her thoughts, though she does display some circumstantial speech, often reflecting on past marriages and life events. As the day progresses, she becomes more confused, suspicious, and agitated. She also has greater difficulty staying on topic and frequently redirects conversations to past experiences and her ?army boy friends from [place]?. This afternoon, we attempted to complete the [place] Cognitive Assessment (MoCA), but she became flustered by her difficulty seeing the materials and expressed suspicion toward the examiner. The patient also voices concern about cognitive changes for some time, though she cannot specify the exact nature of these changes. At this time, the patient is not connected with family or friends, making it challenging to obtain a true understanding of her cognitive patterns over the past year, but her impairment appears marked. In addition, the patient reports a history of recurrent falls over the past few months and an increase in impaired balance. Her gait is steady but slow, and she is using a walker during her hospital stay. Her most prominent symptoms have been well-formed visual hallucinations, including seeing people from her past, bugs, and floating ducks. She is unable to recall the exact onset of these symptoms but estimates they began within the past two months. She reports that she was initially evaluated by her primary care physician (PCM) for very vivid dreams, which gradually progressed into well-formed visual hallucinations. With recent treatment with antipsychotic medications, she reports not having hallucinations of people, but she has continued to experience bugs and is intermittently distracted by these hallucinations, She was started on quetiapine 50 mg qhs by her PCM, which did not alleviate her hallucinations or agitation. During her hospital stay, she has responded positively to olanzapine, though dose titration has been necessary. She was given PRN haloperidol for severe agitation, with usage trending downward as her other second-generation antipsychotics (SGAs) are gradually increased. 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 RECOMMENDATIONS 1. We will continue to work with SW and DCR regarding placement. 2. Encourage nursing staff employ behavioral strategies to lessen impact of hallucinations such as frequent reorientation, daily ambulation, reducing noise and fostering calm environment. 3. D/C Haldol. First gen antipsychotics can sometimes worsen symptoms. 4. D/C Olanzapine so as not to have too many antipsychotics onboard. 4. Continue quetiapine and increase to 100 mg po qhs 5. If agitation becomes severe, Risperidone 0.5 to 1.0 mg IM PRN for agitation. 6. Consider starting Rivastigmine 1.5 mg daily (cholinesterase inhibitor) may help with cognition. Time-Based Coding :: 45 minutes spent with patient and on the chart (including review of chart, obtaining history, exam, reviewing outside data, placing orders, documenting exam and treatment plan, and counseling patient) on 20 October 2024. Quality VTE Deep Vein Thrombosis/Pulmonary Embolism Present on Admission: No IH PROFEE Installation Tech Document charge(s): Yes Charge Codes Subsequent inpatient/observation care: 20397
[2024-10-20] MEDS: HALOPERIDOL 5 MG/ML VIAL IM ×2 (17:36→19:59)
--- NOTE | 2024-10-20 18:07 | CM.DPC ---
DCP Plan Continued This PLASTER PATTERNMAKER coordinates with JACK Stacy. Tawanna determines patient's grave disability and detains patient with JOESPH placement at [facility]. It is reported that [facility] can accept patient tomorrow at [phone], accepting provider is Dr. Mikael Laurent, quality coordinator is Tomas. human services case manager Shanique calls [facility] and schedules BLS transport for 1300 tomorrow. PLASTER PATTERNMAKER calls [facility] intake ([phone]) regarding this disposition and BLS ETA and leaves requesting return call at desk. This PLASTER PATTERNMAKER observes JACK Stacy serve patient with [facility] paperwork. PLASTER PATTERNMAKER places patient's [facility] paperwork for patient transfer patient is in patient's chart. Tawanna SANTIAGO states that she will fax over her DCR briefing to the [facility] desk as well. PLASTER PATTERNMAKER informs this to the [facility] and rn charge. Plan: patient to transfer to [facility] for JOESPH inpatient hospitalization via BLS tomorrow afternoon, [facility] BLS ETA 1300. Laney Maguire, PRESCRIPTION BENEFIT SPECIALIST
[2024-10-20] MEDS: QUETIAPINE 25 MG TABLET 100 MG PO (20:00)
[2024-10-20] MEDS: MELATONIN 3 MG TABLET PO (20:00)
[2024-10-21] MEDS: LEVOTHYROXINE 50 MCG TABLET PO (05:51)
[2024-10-21 06:01] VITALS: BP 156/100; PULSE 85; RESP 16; TEMP 35.9; O2SAT 94
[2024-10-21 08:00] VITALS: BP 148/100; PULSE 105; RESP 16; TEMP 36.1; O2SAT 96
[2024-10-21] MEDS: HEPARIN 5,000 UNIT/ML VIAL 5000 UNIT SUBCUT (08:20)
[2024-10-21] MEDS: CELECOXIB 100 MG CAPSULE PO (08:20)
[2024-10-21] MEDS: ATORVASTATIN 20 MG TABLET PO (08:20)
[2024-10-21] MEDS: OLANZapine 2.5 MG TABLET 10 MG PO (08:20)
[2024-10-21] MEDS: CYCLOBENZAPRINE 10 MG TABLET PO (08:21)
--- NOTE | 2024-10-21 08:26 | P.DS_ITS ---
History of Present Illness History of Present Illness Chief complaint: mental health eval Narrative: From H&P: 79-year-old female with past medical history of hyperlipidemia, GERD, vgq-ungyhog-qwowsqnhj diabetes who was brought into ER due to auditory hallucination. Of note the patient over the last few months has been having recurrent psychosis. The patient was reported to be having hallucination and was running away from people that were chasing her. With her recent fall on September 22, 2024 the patient landed on her left arm and continue to have left arm/wrist pain. Of note the patient lives on [facility] and was noted to have increased agitation and hallucination for the last few months. The patient reports that she is still sees her who had past away 5 years ago. Of note the patient also might have underlying dementia per the report. The patient has been admitted to our ER for the last 48 hours. [facility] was consulted but there is no bed available at this time to accept the patient. The patient is medically stable without any significant lab abnormality or infection. Vital signs are also stable. Due to ongoing agitation and hallucination our ER physician have to give her Seroquel as well as Haldol to keep the patient calm and awaits for a geripsych bed to open up. Due to our hospital policy the patient cannot be in the ER for more than 48 hours awaiting a mental health bed. A request to admit the patient to our medical service while awaiting for a [facility] bed to opens up. Discharge Providers Provider Date of admission: 10/15/24 19:46 Discharge Date: 10/21/24 Primary care physician: Arslan Felton MD Consults: 10/13/24 20:41 Consult to [facility] - Flash Designer Stat Comment: Flash Designer Consult needed for:: Unable to care for self 10/14/24 07:01 Consult to [facility] - Flash Designer Stat Comment: Flash Designer Consult needed for:: Mental illness 10/15/24 08:20 Consult to Physician Stat Comment: Consulting Provider: Eduardo Lucero Reason for consultation: Assessment Discharge provider: Kana Martinez MD Summary Hospital Course Discharge Diagnosis: 1. 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 Present on admission and active. - continue home seroquel, increased zyprexa yesterday to 5 mg daily and 10 mg at night. - unclear if this is related to depression with psychosis, other psychiatric illness, or dementia. Her very poor vision (about 20/200) is also a confounding factor in evaluation. - infectious and metabolic etiologies have been ruled out. 2. Zle-kdbtbig-lhmcksayu diabetes. Present on admission and stable. - given psychosis will not check glucose while admitted. 3. Recent fall with fracture of left wrist. Distal radial and ulnar styloid fractures. Present on admission and stable. - Splint placed in the ER - outpatient ortho follow up 4. Hyperlipidemia. resume home statin. Present on admission and stable. Hospital Course: She was admitted while waiting for [facility] placement. The patient has had hallucinations. The patient was started on Zyprexa and Seroquel in the emergency department. Efforts were made to find appropriate inpatient treatment for her hallucinations and psychosis. Ultimately he jarrod [facility] was able to accept her for ongoing treatment. She was seen by Psychiatry while in the hospital. Status at Discharge Cognitive/behavioral status at discharge: confused Functional status at discharge: independent ambulation Overall status at discharge: patient is not back to baseline Time Spent with Patient Time spent: Greater than 30 minutes Exam Vital Signs (past 8 hours): - 10/21/24 06:01 10/21/24 08:00 Temperature 96.6 F L 96.9 F L Pulse Rate 85 105 H Respiratory Rate 16 16 Blood Pressure 156/100 H 148/100 H Pulse Oximetry 94 96 Oxygen Flow Rate 0 0 Oxygen Delivery Method Room Air Oxygen Flow Rate 0 Narrative Exam Narrative: NAD, alert and oriented. Fluent speech. Lungs are clear, normal rate and effort. Heart is regular, no murmur gallop or rub. Abdomen is soft, non distended. Extremities are free of edema. Objective ECG Impression: Measurements Intervals [place] Rate: 94 P: 49 FL: 166 QRS: 17 QRSD: 68 T: 65 QT: 372 QTc: 465 Interpretive Statements Normal sinus rhythm Possible Anterior infarct , age undetermined Electronically Signed On 10-20-2024 17:35:55 PST by Kana Roland Multiple studies:: Radiologist's impression: Head CT: No acute intracranial pathology. Wrist x-ray: Distal radial and ulnar styloid fractures. Labs 10/16/24 06:35 10/16/24 06:35 Labs: Laboratory Results - last 24 hr 10/20/24 14:59 SARS-CoV-2 (PCR) Negative PFSH Medical History GERD (gastroesophageal reflux disease) Non-insulin dependent diabetes mellitus Dyslipidemia Surgical History History of knee replacement H/O: hysterectomy Social History details: Lives alone independently on [facility] household members: none Smoking Status: Never smoker alcohol intake: current Discharge Assessment & Plan Assessment and Plan Assessment: 1. 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 Present on admission and active. - continue home seroquel, increased zyprexa yesterday to 5 mg daily and 10 mg at night. - unclear if this is related to depression with psychosis, other psychiatric illness, or dementia. Her very poor vision (about 20/200) is also a confounding factor in evaluation. - infectious and metabolic etiologies have been ruled out. Plan of Treatment: Transfer to [facility]. Discharge Plan Discharge Plan Patient Disposition: [facility] Other facility: Geropsychiatry Unit. Under care of provider: Attending Doctor. Provider Discharge Comment: Stable for transfer to [facility] for further evaluation and treatment. Diet/Activity/Treatments Diet: Regular Liquid consistency: Normal/Thin Food texture: Regular Discharge Data Primary Care Provider: Arslan Felton Attending Provider: Bossman Buckley Admnataly Date/Time: 10/15/24 19:46 Quality VTE Deep Vein Thrombosis/Pulmonary Embolism Present on Admission: No
--- NOTE | 2024-10-21 12:40 | CM.DPNOTE ---
DC Note Patient has been detained to [facility], JACK Stacy Friday determined 10/20 patient's grave disability and detained patient with JOESPH placement at [facility]. Coordinating with Tomas [facility] admissions P [phone] (alt number P [phone]) F [phone] throughout the morning; [facility] BLS arranged for pick remover 1300 /. RN Coordinator Shanique completed BLS/cobra form, accepting provider updated today- Dr Thor Shaw. Discharging provider, Dr Martinez. Patient dressed and ready to leave this morning. JACK packet, DC Summary, updated psychiatrist note, COVID swab, EKG report, copy of patient's MCR card all faxed to Tomas at F [phone]. Emailed Tomas at patient's known NOK and contacts to [email or web address]: friend Lisa P ([phone]), Niece Tammie (p [phone])([place], [place]). son Levi P [phone] ([place], [place])- Not answering calls re his mom per friend Lisa. Placed call to friend Lisa, who had been updated by JACK Stacy last night, to discuss plan. Lisa states understanding and will follow up with staff at . Placed call to Assigned HCS worker, Ranjana Bhandari P [phone] [email or web address] and MAYRA Adams P ([phone])- left messages for both updating them on patient's dispo. secretary of state's # at [facility] P [phone]. provided to bedside VICTORIANO Marroquin to call report to accepting RN at - Anupam. Plan: [facility], [facility] via [facility] BLS pick remover at 1300. DARCY Atwood
--- NOTE | 2024-10-21 13:35 | PC.NURSE ---
Day shift: Patient wavered this shift between cooperative and calm, to accusing but redirectable. She said I know all your motives. Get out of here! and then 30 seconds later I'm sorry, I'm just feeling overwhelmed. [facility] came to pick her up at 1300. Patient willingly got in the stretcher and was buckled. This RN took all her belongings (2 large suitcases + several plastic bags of clothes) out to the ambulance with the patient, including patient's phone and cow washer. No IV access, no telemetry. No PRN medication for agitation given. Called [facility] and gave report to Andrei.
== END 2024-10-21 13:30 | disposition short-term general hospital (02) ==
LOC: ED 10-15 17:54 → AC 10-15 19:47
PROVIDERS: Emergency Medicine; Hospitalist; Admitting Provider Internal Medicine; Emergency Provider Emergency Medicine; PCP Family Medicine; Visit Provider Internal Medicine
DX: R44.1 Visual hallucinations (principal); R44.0 Auditory hallucinations; R45.1 Restlessness and agitation; S62.102A Fracture of unspecified carpal bone, left wrist, initial encounter for closed fracture; H54.7 Unspecified visual loss; H26.9 Unspecified cataract; E78.5 Hyperlipidemia, unspecified; E11.9 Type 2 diabetes mellitus without complications; K21.9 Gastro-esophageal reflux disease without esophagitis; Z91.81 History of falling; Z11.52 Encounter for screening for COVID-19; Z66 Do not resuscitate
CPT/HCPCS: 29125; 36415; 70450; 73110; 80048; 80053; 80305; 80320; 81003; 81015; 82962; 84443; 85025; 87086; 87635; 93005; 96372; 96374; 99285; G0378; J1630; J1644; J1650; J2060; J2359; J3410